=== PATIENT | female | born 1965 | race Caucasian/White ===

== ENCOUNTER 2017-03-10 08:18 | Observation (INO) ==
[2017-03-10] MEDS ORDERED: Ketorolac 30 MG/ML VIAL IVP ONE ×2 (09:21→18:56)
--- NOTE | 2017-03-10 09:21 | General Surg History&Physical ---
<Francisca Ling - Last Filed: 03/10/17 09:23> Date of Encounter: 03/10/17 Time of Encounter: 09:00 Assessment and Plan (1) Recurrent biliary colic Current Visit: Yes Status: Acute The assessment and plan as outlined above was discussed with the patient and/or family members who expressed understanding and agreement. All questions were answered. NPO IV fluids Pre-operative antibiotic- Mefoxin Supportive care and pain control PPI therapy daily IS every 1 hour while awake Risks, benefits, alternatives and expected outcomes reviewed with the patient and she is in agreement to proceed to the operating room with Dr. Villalba for a laparoscopic cholecystectomy with cholangiogram, possible open in the next 24 hours (2) GERD (gastroesophageal reflux disease) Current Visit: Yes Status: Chronic The assessment and plan as outlined above was discussed with the patient and/or family members who expressed understanding and agreement. All questions were answered. EGD complete 01/[address] Ivy PPI therapy daily Qualifiers: Esophagitis presence: with esophagitis Qualified Code(s): K21.0 - Gastro- esophageal reflux disease with esophagitis (3) Anxiety and depression Current Visit: Yes Status: Chronic The assessment and plan as outlined above was discussed with the patient and/or family members who expressed understanding and agreement. All questions were answered. (4) Migraine headache Current Visit: No Status: Chronic The assessment and plan as outlined above was discussed with the patient and/or family members who expressed understanding and agreement. All questions were answered. Toradol prn for migraine headaches Qualifiers: Migraine type: unspecified Status migrainosus presence: without status migrainosus Intractability: not intractable Qualified Code(s): G43.909 - Migraine, unspecified, not intractable, without status migrainosus (5) DVT prophylaxis Current Visit: No Status: Acute The assessment and plan as outlined above was discussed with the patient and/or family members who expressed understanding and agreement. All questions were answered. EPCDs to bilateral lower extremities for DVT prophylaxis Ambulate hallways TID with assistance History of Present Illness Chief complaint: RUQ abdominal pain HPI: Ms. Arciniega is a 51 year old female presented to [place] ED last evening with complaints of recurrent RUQ abdominal pain. She state that the pain woke her up from sleep last night. She describes it as a sharp and stabbing pain in the RUQ which is constant. The pain does radiate into her back. She has experienced pain like this on multiple occasions but it has not been this severe and it typically resolves on its own. She has been unable to get relief from the pain during this episode. She does admit to nausea and vomiting multiple times last night. Reports bilious emesis without hematemesis of coffee ground emesis. She does admit to reflux. She admits to episodes of diaphoresis but did not check her temperature. Denies any changes in bowel habits. Her last bowel movement was yesterday. She denies any difficulty with urination. Denies any shortness of breath or chest pains. She does admit to having a headache and she states that these are chronic for her. The patient has been seen and evaluated by gastroenterology recently and has subsequently been referred to general surgery for cholecystectomy. She was seen and evaluated by Dr. Villalba in his outpatient clinic yesterday and was scheduled for a outpatient cholecystectomy. Past Med Surg Social Fam HX - Past Medical History Source: patient, old records reviewed Medical history: fibromyalgia, GERD, migraine, other Psychiatric history: anxiety, depression - Past Surgical History Surgical History: other (gastric bypass, exploratory laparotomy with DONTA, tonsillectomy) - Social History Smoking Status: Never smoker Smokeless Tobacco Status: No Alcohol use: none Drug use: none Current living situation: Home - Independent Activity Level: Independent ambulation - Family History Mother Living Status: Still Living Hx Family Endocrine Disorder: Yes (Diabetes Mellitus) Father Living Status: Age at : 62 Cause of : throat cancer Hx Family Cancer: Yes (throat cancer) Sister Living Status: Still Living Hx Family Cardiac Disorders: Yes (Multiple DE) Hx Family Endocrine Disorder: Yes (Diabetes Mellitus) Medications and Allergies Acetaminophen [Tylenol] 500 mg PO Q6H PRN 01/12/17 [History] Acetaminophen/Butalbital/Caffe [Fioricet] 1 each PO DAILY PRN 01/12/17 [History] Ranitidine HCl [Zantac] 150 mg PO BID 01/12/17 [History] Tramadol HCl [Ultram] 50 mg PO TID PRN 01/12/17 [History] Zolpidem [Ambien] 10 mg PO HS 01/12/17 [History] lamoTRIgine [Lamictal] 200 mg PO HS 01/12/17 [History] Amitriptyline [Elavil] 50 mg PO DAILY 03/10/17 [History] FLUoxetine HCl [Fluoxetine HCl] 60 mg PO DAILY 03/10/17 [History] Omeprazole [PriLOSEC] 20 mg PO DAILY 03/10/17 [History] SUMAtriptan succinate [Imitrex] 50 mg PO Q2H PRN 03/10/17 [History] 3 Allergy/AdvReac Type Severity Reaction Status Date / Time metoclopramide [From Reglan] Allergy See Verified 03/10/17 09:45 Comments Penicillins Allergy Anaphylaxis Verified 03/10/17 09:45 Sulfa (Sulfonamide Allergy Swelling Verified 03/10/17 09:45 Antibiotics) of Lip/Tongue/Throat Review of Systems All systems PM: reviewed and no additional remarkable complaints except as stated (in the HPI) All systems PM: A 10-system review of systems was performed and is negative for pertinent findings except as documented above in the HPI. General Surgery Exam Initial Vital Signs Temp Pulse Resp BP Pulse Ox 97.7 F 64 16 157/109 96 03/10/17 08:20 03/10/17 08:20 03/10/17 08:20 03/10/17 08:20 03/10/17 08:20 - General physical appearance well developed, well nourished, moderate distress, moderate pain - Eyes PERRL, normal ocular movement - ENT normal mucosa, atraumatic, normocephalic - Neck trachea midline - Respiratory normal respiratory effort, clear to auscultation - Cardiovascular Cardiovascular exam: Present: RRR - Abdomen Abdomen general surgery: Present: bowel sounds present, soft, tender Abdominal Tenderness: Present: RUQ - Neurologic Present: CN 2-12 grossly intact - Psychiatric Psychiatric general surgery: Present: appropriate, oriented to person, oriented to place, oriented to time, speech is normal, memory intact Results - Labs All other labs normal. - Attending Attestation For this encounter, I have reviewed the INTERVENTIONAL PHYSIATRIST or PA documentation, treatment plan, and medical decision making; and I have had face to face time with this patient. <Nura Villalba - Last Filed: 03/10/17 18:32> Date of Encounter: 03/10/17 History of Present Illness HPI: Ms. Arciniega is a 51 year old female Review of Systems All systems PM: A 10-system review of systems was performed and is negative for pertinent findings except as documented above in the HPI. General Surgery Exam Initial Vital Signs Temp Pulse Resp BP Pulse Ox 97.7 F 64 16 157/109 96 03/10/17 08:20 03/10/17 08:20 03/10/17 08:20 03/10/17 08:20 03/10/17 08:20 Results - Labs All other labs normal. - Attending Attestation I have personally performed a face to face evaluation on this patient. I have reviewed and agree with the care plan. History and Exam by me shows: The patient is seen and evaluated with the clinical nurse practitioner. The patient has signs of continued chronic pancreatitis by CAT scan and right upper quadrant pain. Gastroenterology has recommended cholecystectomy and I concur. She continues to be symptomatic with right upper quadrant pain. We will proceed with laparoscopic cholecystectomy later today. Please see documentation from outpatient clinic note from yesterday. Nura Villalba MD FACS
[2017-03-10] MEDS ORDERED: Ondansetron 4 MG/2 ML VIAL IVP ONE (09:22)
[2017-03-10] MEDS ORDERED: 0.9 % Sodium Chloride 1,000 ML IVC SCH (09:45)
[2017-03-10] MEDS ORDERED: Ondansetron 4 MG/2 ML VIAL IVP PRN (09:45)
[2017-03-10] MEDS ORDERED: Naloxone 0.4 MG/ML INJ IVP PRN ×2 (09:45→18:27)
[2017-03-10] MEDS ORDERED: cefOXitin 2,000 MG in Water for inj. (sterile) 10 ML IVP ONE ×3 (09:50→18:27)
[2017-03-10] MEDS ORDERED: Acetaminophen 325 MG TABLET PO PRN ×2 (09:50→18:27)
[2017-03-10] MEDS ORDERED: *HR* OxyCODONE/APAP 5/325 TABLET PO PRN (09:50)
[2017-03-10] MEDS ORDERED: *HR* HYDROmorphone (PF) 1 MG/ML SYRINGE IVP PRN ×2 (09:50→18:27)
[2017-03-10] MEDS ORDERED: Ketorolac 15 MG/ML VIAL IVP PRN ×2 (09:50→14:55)
[2017-03-10] MEDS ORDERED: *HR* LORazepam 2 MG/ML VIAL IVP PRN ×2 (09:53→18:27)
[2017-03-10] MEDS ORDERED: *HR* Midazolam HCl 2 MG/2 ML VIAL ONE (15:28)
[2017-03-10] MEDS ORDERED: Dexamethasone 4 MG/ML VIAL ONE (15:28)
[2017-03-10] MEDS ORDERED: *HR* Rocuronium Bromide 50 MG/5 ML VIAL ONE (15:28)
[2017-03-10] MEDS ORDERED: Lidocaine -MPF 4% 5 ML AMPUL ONE (15:28)
[2017-03-10] MEDS ORDERED: *HR* Succinylcholine 200 MG/10 ML VIAL IVP ONE (15:28)
[2017-03-10] MEDS ORDERED: Neostigmine Methylsulfate 3 MG/3 ML SYRINGE ONE (15:28)
[2017-03-10] MEDS ORDERED: Ondansetron 4 MG/2 ML VIAL ONE (15:28)
[2017-03-10] MEDS ORDERED: *HR* FentaNYL (PF) 100 MCG/2 ML VIAL ONE (15:28)
[2017-03-10] MEDS ORDERED: Lidocaine -MPF 2% 2 ML VIAL ONE (15:28)
--- NOTE | 2017-03-10 15:28 | Anesthesia Evaluation PreOp ---
Date of Encounter: 03/10/17 Time of Encounter: 15:24 - Past History Planned Operation: Lap Radha re: Biliary Colic Cardiac History: Denies any Significant Hx Pulmonary History: Denies Any Significant HX CITY CLERK History: Other (Anxiety/Depression maintained on Prozac, Lamictal Hx of Migraines. Fibromyalgia) Other Medical History: GERD (w/Esophagitis maintained on Zantac, Omeprazole) Anesthesia History: No Prior Anesthetic Complications, Past Anesthesia (Gastric bypass, Expl Lap w/DONTA, T&A) Alcohol Use: none Drug use: none Medications and Allergies Acetaminophen [Tylenol] 500 mg PO Q6H PRN 01/12/17 [History] Acetaminophen/Butalbital/Caffe [Fioricet] 1 each PO DAILY PRN 01/12/17 [History] Ranitidine HCl [Zantac] 150 mg PO BID 01/12/17 [History] Tramadol HCl [Ultram] 50 mg PO TID PRN 01/12/17 [History] Zolpidem [Ambien] 10 mg PO HS 01/12/17 [History] lamoTRIgine [Lamictal] 200 mg PO HS 01/12/17 [History] Amitriptyline [Elavil] 50 mg PO DAILY 03/10/17 [History] FLUoxetine HCl [Fluoxetine HCl] 60 mg PO DAILY 03/10/17 [History] Omeprazole [PriLOSEC] 20 mg PO DAILY 03/10/17 [History] SUMAtriptan succinate [Imitrex] 50 mg PO Q2H PRN 03/10/17 [History] 3 Allergy/AdvReac Type Severity Reaction Status Date / Time metoclopramide [From Reglan] Allergy See Verified 03/10/17 09:45 Comments Penicillins Allergy Anaphylaxis Verified 03/10/17 09:45 Sulfa (Sulfonamide Allergy Swelling Verified 03/10/17 09:45 Antibiotics) of Lip/Tongue/Throat - Meds/Allergy Pre-op Review Medications Reviewed: Yes Allergies Reviewed: Yes Beta Blockers on Current Med List: No Anesthesia Results - Labs Laboratory Tests 03/09/17 03/09/17 23:40 23:40 WBC 7.4 Hgb 14.7 Hct 43.3 Plt Count 271 Sodium 140 Potassium 4.6 H Chloride 106 Carbon Dioxide 20 BUN 14 Creatinine 0.88 Est GFR (Non-Af Amer) > 60 Glucose 160 H Alkaline Phosphatase 182 H - Imaging EKG: image reviewed (101 STach) Anesthesia Exam Vital Signs Temp Pulse Resp BP Pulse Ox 03/10/17 11:53 96 03/10/17 10:30 97.7 F 58 16 104/63 96 03/10/17 09:33 61 18 114/81 96 03/10/17 09:12 66 93/79 99 03/10/17 08:31 63 134/94 97 03/10/17 08:20 97.7 F 64 16 157/109 96 Intake and Output 03/09/17 03/10/17 03/10/17 23:59 07:59 15:59 Other: Weight 83.149 kg Patient Weight 03/10/17 23:59 Weight 83.149 kg Height: 5'2" Weight: 183# BMI = 34 NPO (# of Hours): Mnoc - HEENT Pupil (Motor): Pupils equal, EOMI Mallampati: II Teeth: Normal Oral Opening: Greater than 3 - CITY CLERK LOC: Oriented CITY CLERK Motor: Normal RUE, Normal LUE, Normal RLE, Normal LLE, Normal Face CITY CLERK Sensory: Normal: RUE, LUE, RLE, LLE, Face - Cardiac Rhythm: Regular Murmur: None - Pulmonary Breath Sounds: bilateral Clear Respiratory Effort: Symmetrical Anesthesia Assess/Plan ASA Score: 3 Modified [place] Scale for Level of Consciousness: Cooperative, oriented, and tranquil Anesthetic Plan: General Monitoring Plan: Standard Monitors Recovery Plan: PACU Anes Supervising Prov Stmt: PT seen/evaluated, R&B discussed, questions answered and consent obtained - MD Sandeep
[2017-03-10] MEDS ORDERED: *HR* Propofol 200 MG/20 ML VIAL IVP ONE (15:29)
[2017-03-10] MEDS ORDERED: CefOXitin 2,000 MG VIAL ONE (16:18)
[2017-03-10] MEDS ORDERED: Acetaminophen IV 1,000 MG/100 ML INFUS..BTL ONE (16:29)
[2017-03-10] MEDS ORDERED: Famotidine 20 MG/2 ML VIAL ONE (16:30)
[2017-03-10] MEDS ORDERED: CefOXitin 1,000 MG VIAL ONE (16:41)
[2017-03-10] MEDS ORDERED: EPHEDrine 50 MG/ML VIAL ONE (17:49)
[2017-03-10] MEDS ORDERED: *HR* Morphine 10 MG/ML VIAL ONE (18:00)
--- NOTE | 2017-03-10 18:24 | Operative Note ---
Date of procedure: 03/10/17 Pre-op diagnosis: Chronic pancreatitis and biliary dyskinesia Post-op diagnosis: same Procedure: Laparoscopic Cholecystectomy Anesthesia: UBALDO Surgeon: Nura Villalba Estimated blood loss (cc): 20 Specimen: Gallbladder and contents Condition: stable Disposition: PACU Procedure in Detail: After informed consent the patient is taken to the major operative suite and placed in the supine position and given adequate general endotracheal anesthesia. The abdomen is prepped and draped in sterile fashion utilizing ChloraPrep standard draping techniques. Timeout was taken. The patient is identified. I made a vertical midline incision below the umbilicus. I dissected down to the midline fascia. 2 traction stitches of 2-0 Vicryl were placed. The Howard trocar was placed visually into the abdomen. There were midline adhesions of the small bowel to the anterior abdominal wall area I was able to go around these with no trauma. I placed an 11 trocar in the subxiphoid area and 25 mm trochars in subcostal area. The gallbladder was grasped and elevated. A variety of blunt and sharp dissection techniques used isolate a very small sclerotic cystic duct and the cystic artery. 2 surgical clips were placed proximally one distally on the cystic duct and it was divided. 2 surgical clips were placed proximally one distally on the cystic artery and it was divided. I placed 2 surgical clips and one additional branch of the cystic artery. The gallbladder was removed from the gallbladder fossa using electrocautery and subsequently removed the #11 port site. I replaced a # 11 port and irrigated with copious amounts of antibiotic containing solution. There is no evidence of bleeding or bile leak. The trochars were removed and the fascia was closed with 0 Vicryl and the skin with 2-0 and 4-0 Vicryl. She tolerated the procedure well.
[2017-03-10] MEDS ORDERED: Ketorolac 30 MG/ML VIAL ONE (18:50)
[2017-03-10] MEDS ORDERED: *HR* Promethazine 25 MG/ML VIAL ONE (18:50)
[2017-03-10] MEDS: *HR* Promethazine 25 MG/ML VIAL IVP SCH ×2 (18:53→19:07)
--- NOTE | 2017-03-10 19:12 | Anesthesia Evaluation Post Op ---
Date of Encounter: 03/10/17 Time of Encounter: 19:10 - Vital Signs Vital Signs: Vital Signs/O2 Sat/Glucose, Most Current Temp Pulse Resp BP Pulse Ox 03/10/17 19:02 98.1 F 63 16 117/70 94 03/10/17 18:52 74 16 119/69 94 03/10/17 18:42 84 16 117/75 96 03/10/17 18:32 97.1 F L 98 16 139/83 100 03/10/17 16:41 62 15 110/76 97 03/10/17 15:42 98.0 F 59 16 123/78 98 - Lungs Lungs: Clear Ascult./Percussion - Airway Airway: Non-obstructed - Cardiovascular Regular Rate - Mental Status Mental Status: Alert & Oriented, Answers Appropriately - Pain Pain Scale: 2 Pain Scale used: Numeric (1 - 10) - Nausea Vomiting Nausea Vomiting: Responds to treatment with IV Meds - Hydration Hydration: Ice chips, Has not voided - Discharge PostOp Status: Transfer Patient to floor Anes Supervising Prov Stmt: Pt seen/evaluated, VSS and pt has met criteria for discharge to floor. - MD Sandeep
[2017-03-10] MEDS: *HR* OxyCODONE/APAP 5/325 TABLET PO PRN (19:39)
[2017-03-10] MEDS: Famotidine 20 MG TABLET PO SCH (19:39)
[2017-03-10] MEDS ORDERED: Famotidine 20 MG TABLET PO SCH (21:00)
[2017-03-11] MEDS: 0.9 % Sodium Chloride 1,000 ML IVC SCH ×2 (01:14→08:36)
[2017-03-11] MEDS: *HR* OxyCODONE/APAP 5/325 TABLET PO PRN ×2 (01:28→05:51)
[2017-03-11] MEDS: Ondansetron 4 MG/2 ML VIAL IVP PRN ×3 (01:29→10:27)
[2017-03-11] MEDS: Ketorolac 15 MG/ML VIAL IVP PRN ×2 (03:01→08:43)
[2017-03-11] MEDS ORDERED: SUMAtriptan succinate 50 MG TABLET PO PRN (07:22)
[2017-03-11] MEDS: Famotidine 20 MG TABLET PO SCH (08:34)
[2017-03-11] MEDS ORDERED: FLUoxetine 20 MG CAPSULE PO SCH ×2 (09:00)
[2017-03-11 11:59] VITALS: BP 122/81
--- NOTE | 2017-03-11 14:13 | Discharge Summary ---
<Francisca Ling - Last Filed: 03/11/17 14:10> Date of Encounter: 03/11/17 Time of Encounter: 14:00 - Discharge Diagnosis (1) Recurrent biliary colic Priority: Primary Status: Resolved (2) GERD (gastroesophageal reflux disease) Priority: Secondary Status: Chronic Qualifiers: Esophagitis presence: with esophagitis Qualified Code(s): K21.0 - Gastro- esophageal reflux disease with esophagitis (3) Anxiety and depression Priority: Secondary Status: Chronic (4) Migraine headache Priority: Secondary Status: Chronic Qualifiers: Migraine type: unspecified Status migrainosus presence: without status migrainosus Intractability: not intractable Qualified Code(s): G43.909 - Migraine, unspecified, not intractable, without status migrainosus - Discharge Medications Prescriptions: OxyCODONE/APAP 5/325 [Percocet 5/325 MG] 1 each PO Q4HR PRN #30 tablet PRN Reason: Moderate Pain Ibuprofen [Motrin] 800 mg PO Q8HR #40 tablet Docusate [Colace] 100 mg PO BID #30 capsule Home Medications: Acetaminophen [Tylenol] 500 mg PO Q6H PRN 01/12/17 [History] Acetaminophen/Butalbital/Caffe [Fioricet] 1 each PO DAILY PRN 01/12/17 [History] Ranitidine HCl [Zantac] 150 mg PO BID 01/12/17 [History] Tramadol HCl [Ultram] 50 mg PO TID PRN 01/12/17 [History] Zolpidem [Ambien] 10 mg PO HS 01/12/17 [History] lamoTRIgine [Lamictal] 200 mg PO HS 01/12/17 [History] Amitriptyline [Elavil] 50 mg PO DAILY 03/10/17 [History] FLUoxetine HCl [Fluoxetine HCl] 60 mg PO DAILY 03/10/17 [History] Omeprazole [PriLOSEC] 20 mg PO DAILY 03/10/17 [History] SUMAtriptan succinate [Imitrex] 50 mg PO Q2H PRN 03/10/17 [History] Docusate [Colace] 100 mg PO BID #30 capsule 03/11/17 [Rx] Ibuprofen [Motrin] 800 mg PO Q8HR #40 tablet 03/11/17 [Rx] OxyCODONE/APAP 5/325 [Percocet 5/325 MG] 1 each PO Q4HR PRN #30 tablet 03/11/17 [Rx] Allergies/Adverse Reactions: 3 Allergy/AdvReac Type Severity Reaction Status Date / Time metoclopramide [From Reglan] Allergy See Verified 03/10/17 09:45 Comments Penicillins Allergy Anaphylaxis Verified 03/10/17 09:45 Sulfa (Sulfonamide Allergy Swelling Verified 03/10/17 09:45 Antibiotics) of Lip/Tongue/Throat General Surgery Exam Initial Vital Signs Temp Pulse Resp BP Pulse Ox 97.7 F 64 16 157/109 96 03/10/17 08:20 03/10/17 08:20 03/10/17 08:20 03/10/17 08:20 03/10/17 08:20 - General physical appearance well developed, well nourished, no distress - Eyes normal ocular movement - ENT normal mucosa, atraumatic, normocephalic - Neck trachea midline - Respiratory normal respiratory effort, clear to auscultation - Cardiovascular Cardiovascular exam: Present: RRR - Abdomen Abdomen general surgery: Present: bowel sounds present, soft, tender (Expected postoperative tenderness) - Incision Incision: Present: clean and dry, intact - Integumentary Integumentary general surgery: Present: warm and dry - Neurologic Present: CN 2-12 grossly intact - Psychiatric Psychiatric general surgery: Present: A&Ox3 Date of admission: 03/10/17 09:50 Primary care physician: Delpihne Silva MD Discharging clinician: Nura Villalba ([facility]) Anticipated date of discharge: 03/11/17 - Patient Status Disposition: Home, Self-Care Condition: Good Functional capacity at discharge: independent ambulation Overall status at discharge: patient is progressing back to baseline - Discharge Instructions Instructions: Ibuprofen (By mouth), Oxycodone/Acetaminophen (By mouth), Laxative, Stool Softeners (By mouth) Follow Up With: Delphine Silva MD [Primary Care Provider] - Yolande Lund CNP [Advanced Practice Nurse] - 03/19/17 8:20 am (surgery follow -up) Forms: ED Satisfaction Letter, Work/School Release Additional Instructions: #1 may shower today, no tub bath for 2 weeks #2 wash incisions with soap and water and pat dry daily #3 no lifting, pushing, pulling more than 15 pounds for the next 2 weeks #4 no driving until off narcotics for 24 hours and able to safely react in the car #5 may climb stairs - Diet and Activity Activity: other (See additional instructions above) Diet: advance to your usual diet - Hospital Course Hospital course: Ms. Arciniega is a 51 year old female who presented to the hospital with recurrent biliary colic. She was admitted to the hospital and started on supportive measures including IV fluids and pain control. She was taken to the operating room for laparoscopic cholecystectomy with Dr. Villalba. On postoperative day #1, she states that her preoperative pain has resolved. Her vital signs are stable she is afebrile. Her postoperative pain is well-controlled. She is voiding and ambulating without difficulty. We will begin discharge. Home and plan for outpatient follow-up in the next 7-10 days. - Time Spent with Patient Total time spent providing and/or coordinating discharge services: Less than 30 minutes - Attending Attestation For this encounter, I have reviewed the ROAD FREIGHT CONDUCTOR or PA documentation, treatment plan, and medical decision making; and I have had face to face time with this patient. <Nura Villalba - Last Filed: 03/12/17 13:48> Date of Encounter: 03/11/17 General Surgery Exam Initial Vital Signs Temp Pulse Resp BP Pulse Ox 97.7 F 64 16 157/109 96 03/10/17 08:20 03/10/17 08:20 03/10/17 08:20 03/10/17 08:20 03/10/17 08:20 Date of admission: 03/10/17 09:50 Primary care physician: Delphine Silva MD - Hospital Course Hospital course: Ms. Arciniega is a 51 year old female - Time Spent with Patient Total time spent providing and/or coordinating discharge services: - Attending Attestation I have personally performed a face to face evaluation on this patient. I have reviewed and agree with the care plan. History and Exam by me shows: The patient was seen and evaluated for morning neves. She is had cholecystectomy and is ready for discharge. I will follow the office. Nura Villalba MD FACS
== END 2017-03-11 14:42 | disposition home or self-care (01) ==
LOC: 3BNU 08:18 → EMEROO 08:18 → 3BNU 10:20
PROVIDERS: ADMIT Surgery; ATTEND Surgery

== ENCOUNTER 2017-03-21 12:54 | Inpatient (IN) ==
[2017-03-21] MEDS ORDERED: *HR* HYDROmorphone (PF) 1 MG/ML SYRINGE IVP ONE ×2 (13:43→14:20)
[2017-03-21] MEDS ORDERED: Ondansetron 4 MG/2 ML VIAL IVP ONE ×2 (13:43→18:49)
[2017-03-21] MEDS ORDERED: 0.9 % Sodium Chloride 1,000 ML IVC ONE (13:44)
[2017-03-21 13:53] LABS: Basophils % 0.8 %; Eosinophils # 0.3 K/mcL (0.0-0.6); Eosinophils % 4.9 %; Hemoglobin 14.9 g/dL (11.5-15.4); Immature Granulocytes % 0.2 % (0-4); Lymphocytes # 1.2 K/mcL (0.6-4.6); Lymphocytes % 24.2 %; Mean Corpuscular HGB Conc 32.4 g/dL (31.6-35.5); Mean Corpuscular Hemoglobin 28.9 pg (28.0-33.3); Mean Corpuscular Volume 89.3 fL (83.0-100.0); Mean Platelet Volume 10.6 fL (9.4-12.4); Monocytes # 0.4 K/mcL (0.0-1.3); Monocytes % 7.4 %; Neutrophils # 3.2 K/mcL (1.6-8.9); Platelet Count 295 K/mcL (140-400); Red Blood Count 5.15 M/mcL (3.82-4.97); Red Cell Distribution Width 13.4 % (11.5-14.5); Segmented Neutrophils % 62.5 %
[2017-03-21 13:55] LABS: Bilirubin,Urine Negative (Negative); Blood,Urine Negative (Negative); Clarity,Urine Clear (Clear); Color,Urine Yellow (Yellow); Glucose,Urine (UA) Normal (Normal); Ketones,Urine Negative (Negative); Leukocyte Esterase,Urine Small (Negative); Nitrite,Urine Negative (Negative); PH,Urine 6.5 pH Units (5.0-8.0); Protein,Urine Negative (Neg-Trace); Specific Gravity,Urine 1.024 (1.010-1.025); Urobilinogen,Urine Normal (Normal)
[2017-03-21 13:56] LABS: Bacteria,Urine None Seen per hpf (None-Few); Hyaline Casts,Urine None Seen per lpf (None-Few); RBC,Urine 0-3 per hpf (0-3); Squamous Epithelial Cell,Urine Many per lpf (None-Few)
[2017-03-21 14:08] LABS: Alanine Aminotransferase 16 Units/L (0-55); Albumin 3.8 g/dL (3.5-5.0); Alkaline Phosphatase 185 Units/L (38-126); Amylase 65 Units/L (25-125); Aspartate Amino Transferase 20 Units/L (5-34); BUN/Creatinine Ratio 12 (6-26); Bilirubin,Direct 0.1 mg/dL (0.0-0.5); Bilirubin,Indirect 0.1 mg/dL (0.0-1.2); Blood Urea Nitrogen 11 mg/dL (7-20); Calcium 9.4 mg/dL (8.6-10.8); Carbon Dioxide 24 mEq/L (19-29); Chloride 103 mEq/L (98-109); Globulin 3.9 g/dL (2.4-3.5); Glucose 88 mg/dL (70-99); Lipase 19 Units/L (8-78); Osmolality,Calculated 285 (280-300); Potassium 4.1 mEq/L (3.5-4.5); Sodium 138 mEq/L (136-145); Total Protein 7.7 g/dL (6.0-8.3); eGFR For African Americans > 60 (> 60); eGFR For Non-African Americans > 60 (> 60)
[2017-03-21 14:09] LABS: Bilirubin,Total < 0.2 mg/dL (0.2-1.2)
--- NOTE | 2017-03-21 14:33 | Emergency Department Note ---
Disposition Clinical Impression: Duodenitis, Duodenal ulcer, S/P cholecystectomy Abdominal pain Qualifiers: Abdominal location: right upper quadrant Qualified Code(s): R10.11 - Right upper quadrant pain Nausea and vomiting Qualifiers: Vomiting type: unspecified Vomiting Intractability: non-intractable Qualified Code(s): R11.2 - Nausea with vomiting, unspecified Disposition: Admitted As Inpatient Condition: Fair Time of Disposition: 16:12 Abdominal Pain HPI - General Chief Complaint: ED Abdominal Pain Stated Complaint: LRQ Pain Time Seen by Provider: 03/21/17 13:29 Source: patient Mode of arrival: ambulatory Limitations: no limitations Nursing Notes Reviewed: Yes Vital Signs Reviewed: Yes - History of Present Illness HPI Narrative: 51-year-old female. ED with right upper quadrant pain. Patient is status post cholecystectomy [address] Villalba. She has had this pain coming going since the surgery. She has been taking her normal medical decisions which have worked for part of the time for her pain but is not taking care of it completely. Patient states she is able to eat except when the pain occurs. Patient did state that today she was given a have a steak. She states that she is nauseous and has been vomiting she says is nonbilious and nonbloody. There has been no diarrhea as as been normal bowel movements. She has no chest pain or shortness of breath. Patient was seen at an outside hospital [facility] department on for the similar pain where they did a CT of her abdomen which came back normal and last [place] and back normal and told her follow-up with the surgeon on Wednesday. She did see the nurse practitioner for the surgeon but the patient was not having pain at that time they suggest a follow-up with the surgeon's office if she has any issues. Patient having no headache, blurry vision, shortness of breath or chest pain, fevers, pain with urination pain or tingling going down the arms or legs or any weakness. Pain Scale: 10 - Related Data Home Medications Medication Instructions Recorded Confirmed Acetaminophen [Tylenol] 500 mg PO Q6H PRN 01/12/17 03/21/17 Acetaminophen/Butalbital/Caffe 1 tab PO DAILY PRN 01/12/17 03/21/17 [Fioricet] Ranitidine HCl [Zantac] 150 mg PO BID 01/12/17 03/21/17 Tramadol HCl [Ultram] 50 mg PO TID PRN 01/12/17 03/21/17 Zolpidem [Ambien] 10 mg PO HS 01/12/17 03/21/17 lamoTRIgine [Lamictal] 200 mg PO HS 01/12/17 03/21/17 Amitriptyline [Elavil] 50 mg PO DAILY 03/10/17 03/21/17 FLUoxetine HCl [Fluoxetine HCl] 60 mg PO DAILY 03/10/17 03/21/17 Omeprazole [PriLOSEC] 20 mg PO DAILY 03/10/17 03/21/17 SUMAtriptan succinate [Imitrex] 50 mg PO Q2H PRN 03/10/17 03/21/17 OxyCODONE/APAP 5/325 [Percocet 1 tab PO Q4HR PRN 03/21/17 03/21/17 5/325 MG] Previous Rx's Medication Instructions Recorded Docusate [Colace] 100 mg PO BID #30 capsule 03/11/17 Allergies Allergy/AdvReac Type Severity Reaction Status Date / Time metoclopramide [From Reglan] Allergy See Verified 03/19/17 02:40 Comments Penicillins Allergy Anaphylaxis Verified 03/19/17 02:40 Sulfa (Sulfonamide Allergy Swelling Verified 03/19/17 02:40 Antibiotics) of Lip/Tongue/Throat Review of Systems: 10 point review of systems done and negative unless otherwise stated in history of present illness. All systems ED: reviewed and negative except as stated. 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 Psychiatric history: Reports: anxiety, depression - Social History Smoking status: Former smoker Alcohol use: Reports: none Drug use: Reports: none Physical Exam - General Limitations: no limitations General appearance: alert, in no apparent distress - Head Head exam: atraumatic, normocephalic, normal inspection - Eye Eye exam: Present: normal appearance, PERRL, EOMI - ENT ENT exam: normal exam, normal oropharynx, mucous membranes moist - Neck Neck exam: Present: normal inspection - Chest Chest inspection: Present: normal inspection, symmetric chest wall rise - Respiratory Respiratory exam: Present: normal lung sounds bilaterally - Cardiovascular Cardiovascular exam: Present: regular rate, normal rhythm, normal heart sounds - Abdominal Exam Abdominal exam: Present: soft, tenderness, normal bowel sounds, incision (From recent cholecystectomy), Hagan's sign. Absent: distention, guarding, rebound, rigidity, organomegaly, Rovsing's sign, tenderness at McBurney's Point, mass, pulsatile mass Abdominal tenderness: Present: RUQ, moderate - Extremities Exam Extremities exam: Present: normal inspection, full ROM, normal capillary refill. Absent: tenderness, pedal edema - Back Exam Back exam: Present: normal inspection, full ROM. Absent: tenderness, CVA tenderness (R), CVA tenderness (L) - Neurological Exam Neurological exam: Present: alert, oriented X3 - Skin Skin exam: Present: warm, dry, intact, normal color Course Course Narrative: 51-year-old female presents to the ED complaining of right upper quadrant pain status post cholecystectomy 1 week ago. She is still having excruciating pain with vomiting. We will give her IV fluids, Dilaudid and Zofran. We will also get basic labs including CBC, CMP, amylase, lipase and urinalysis. Due to her pain will also get a CT of her abdomen to see if there is any acute pathology. Patient is okay with this plan - Reevaluation(s) Reevaluation #1: Patient is in her room still complaining of abdominal pain she says it still hurts the right upper quadrant this time I will order a second milligram of Dilaudid to help with her pain control. Time: 14:36 - Consultations Consultation #1: Spoke with Dr. Nogueira who is on-call for Dr. Villalba's office he looks the CT and said this is nonsurgical issue at this time and they will consult and first admitted to the medicine service. Time: 15:53 Consultation #2: Spoke with the hospitalist, Dr. Flowers who agreed to accept the patient this time. Time: 16:11 Vital Signs Temperature 98.2 F 03/21/17 13:20 Pulse Rate 85 03/21/17 13:20 Respiratory Rate 20 03/21/17 13:20 Blood Pressure 132/89 03/21/17 13:20 O2 Sat by Pulse Oximetry 95 03/21/17 13:20 Temperature 97.9 F 11/14/17 15:43 Pulse Rate 74 03/23/17 15:43 Respiratory Rate 16 03/23/17 15:43 Blood Pressure 101/68 03/23/17 15:43 O2 Sat by Pulse Oximetry 96 03/23/17 15:43 Oxygen Delivery Oxygen Delivery Room Air Abdominal Pain - MDM Narrative Medical decision making narrative: 51-year-old female presents to the ED complaining of right upper quadrant pain she is status post cholecystectomy [address] Villalba. She has been having right upper quadrant pain since the surgery but when taking her medications which has been helping with it. Said today the pain increased where she was unable to handle and S are brought her in. Patient was also seen at [facility] department where they did a CT and there was no abnormal findings. She did follow-up with Dr. Villalba's office on Wednesday but she is not having the pain and they said to follow up if she has any issues. Come here patient was in a lots of pain in her abdomen all located in the right upper quadrant. We gave her 2 mg of Dilaudid which did not help with the pain at all so we gave her 50 mg of fentanyl. This seemed to work better for her pain. We also got a CT which showed duodenitis and possible duodenal ulcer with possible contained perforation. At this time I spoke with the surgeon who is on-call for Dr. Villalba's group, Dr. Nogueira who looked at the CT and said this was not likely due to the surgery and can be treated on the medicine service with their consultation. At this time we started broad-spectrum antibiotics including Flagyl and Cipro. I also gave her a bolus of Protonix and followed it with a drip. Patient was given another 50 mg of fentanyl as she is still having the pain. Patient was admitted to the hospitalist service after I talked to the hospitalist, Dr. Flowers who agreed to set the patient. Patient is admitted to the hospitalist service in stable condition. Abdomen/Pelvis CT 03/21/17 13:54 IMPRESSION: Wall thickening and inflammatory stranding adjacent to the distal stomach and descending duodenum suspicious for gastro duodenitis. There has been interval development of a 1.2 x 0.9 cm focal fluid collection immediately adjacent to the medial descending duodenum, likely focal ulceration or less likely contained perforation. D/ / Elaine Pickens Cha, MD / Elaine Pickens Cha, MD Interpreting Provider: Elaine Pickens Cha, MD - Differential Diagnosis Differential Diagnosis: Likely: abdominal pain non-specific, constipation, colonic obstruction, gastroenteritis, pancreatitis, small bowel obstruction - Medical Records Medical records reviewed: Yes I reviewed the patient's medical records. - Lab Data Lab results reviewed: Yes I reviewed the patient's lab results. Result diagrams: 03/23/17 03:08 03/23/17 03:08 Lab Results 03/21/17 03/21/17 03/21/17 Range/Units 13:37 13:37 13:37 WBC 5.1 (4.3-11.1) K/mcL RBC 5.15 H (3.82-4.97) M/mcL Hgb 14.9 (11.5-15.4) g/dL Hct 46.0 H (35.3-44.9) % MCV 89.3 (83.0-100.0) fL MCH 28.9 (28.0-33.3) pg MCHC 32.4 (31.6-35.5) g/dL RDW 13.4 (11.5-14.5) % Plt Count 295 (140-400) K/mcL MPV 10.6 (9.4-12.4) fL Immature Gran % 0.2 (0-4) % Seg Neutrophils % 62.5 % Lymphocytes % 24.2 % Monocytes % 7.4 % Eosinophils % 4.9 % Basophils % 0.8 % Neutrophils # 3.2 (1.6-8.9) K/mcL Lymphocytes # 1.2 (0.6-4.6) K/mcL Monocytes # 0.4 (0.0-1.3) K/mcL Eosinophils # 0.3 (0.0-0.6) K/mcL Basophils # 0.0 (0.0-0.2) K/mcL Sodium 138 (136-145) mEq/L Potassium 4.1 (3.5-4.5) mEq/L Chloride 103 (98-109) mEq/L Carbon Dioxide 24 (19-29) mEq/L BUN 11 (7-20) mg/dL Creatinine 0.89 (0.57-1.11) mg/dL Est GFR ( Amer) > 60 (> 60) Est GFR (Non-Af Amer) > 60 (> 60) BUN/Creatinine Ratio 12 (6-26) Glucose 88 (70-99) mg/dL Calculated Osmolality 285 (280-300) Calcium 9.4 (8.6-10.8) mg/dL Total Bilirubin < 0.2 L (0.2-1.2) mg/dL Direct Bilirubin 0.1 (0.0-0.5) mg/dL Indirect Bilirubin 0.1 (0.0-1.2) mg/dL AST 20 (5-34) Units/L ALT 16 (0-55) Units/L Alkaline Phosphatase 185 H (38-126) Units/L Serum Total Protein 7.7 (6.0-8.3) g/dL Albumin 3.8 (3.5-5.0) g/dL Globulin 3.9 H (2.4-3.5) g/dL Albumin/Globulin Ratio 1.0 L (1.1-2.2) Amylase 65 (25-125) Units/L Lipase 19 (8-78) Units/L Urine Color Yellow (Yellow) Urine Clarity Clear (Clear) Urine pH 6.5 (5.0-8.0) pH Units Ur Specific [place] 1.024 (1.010-1.025) Urine Protein Negative (Neg-Trace) mg/dL Urine Glucose (UA) Normal (Normal) mg/dL Urine Ketones Negative (Negative) mg/dL Urine Blood Negative (Negative) Urine Nitrite Negative (Negative) Urine Bilirubin Negative (Negative) Urine Urobilinogen Normal (Normal) mg/dL Ur Leukocyte Esterase Small H (Negative) Urine Microscopic RBC 0-3 (0-3) per hpf Urine Microscopic WBC 5-15 H (0-3) per hpf Ur Squamous Epith Cells Many H (None-Few) per lpf Urine Bacteria None Seen (None-Few) per hpf Hyaline Casts None Seen (None-Few) per lpf Ur Culture Indicated? YES A (NO) - Radiology Data Radiology results reviewed: Yes I reviewed the patient's radiology results. Attestation Statement - Attestation Attestation: I examined this patient and my medical decision-making was reviewed with the Resident Physician, Dr. Rivera. I agree with the documented findings, disposition and treatment plan as described except to the extent set forth below. Pt is a 51 yo wf, brought to the ED with grad worsening RUQ/epigastric pain with N/V, and is 7 d s/p lap denys by Dr. Villalba. Pt states that her pain has grad worsened since leaving the hospital, and is worsened with eating. Pt with no bowel changes, no constipation. Pt denies any F/C, no urinary sxs or flank pain. Pt appears uncomfortable, and writhing in pain on arrival. VSS. I agree with the PE findings as documented. On my exam, pt with gen abd TTP, but most tender in RUQ with palpation. Abd soft, and no peritoneal signs on exam. Lap denys incisions, C/D/I, no surrounding erythema/drainage. Pt with stable VS,but requiring repeated doses of IV pain meds to control pain. Labs wnl, UA wnl. CT abd/pelvis was performed at outside [facility] facility 3 d ago , wnl. Repeated imaging, which shows duodenitis, with localized fluid collection , possible perforation. Pt made NPO, started on protonix IV and IV antibx. Pt remains hemodynamically stable. D/W Dr. Nogueira (on-call), who reviewed the images, and does not feel this requires surgical intervention at this time. Recommended admission to medical service and will follow pt. D/W hospitalist, who accepted pt for admission.
[2017-03-21] MEDS ORDERED: *HR* FentaNYL (PF) 100 MCG/2 ML VIAL IVP ONE ×2 (15:32→15:58)
[2017-03-21] MEDS ORDERED: MetroNIDAZOLE 500 MG/100 ML 500 MG/100 ML BAG IVPB ONE (15:47)
[2017-03-21] MEDS ORDERED: Pantoprazole 80 MG in Water for inj. (sterile) 10 ML IVP ONE ×2 (15:51→18:45)
[2017-03-21] MEDS ORDERED: Pantoprazole 80 MG in 0.9 % Sodium Chloride 250 ML IVC SCH (16:00)
[2017-03-21] MEDS ORDERED: *HR* Morphine 2 MG/ML SYRINGE ONE ×2 (18:38→19:47)
[2017-03-21] MEDS: *HR* Morphine 2 MG/ML SYRINGE IVP ONE ×2 (18:41→18:44)
[2017-03-21] MEDS ORDERED: *HR* Morphine 2 MG/ML SYRINGE IVP ONE (19:42)
[2017-03-21] MEDS ORDERED: Naloxone 0.4 MG/ML INJ IVP PRN (20:16)
[2017-03-21] MEDS ORDERED: *HR* HYDROmorphone (PF) 1 MG/ML SYRINGE IVP PRN (20:16)
--- NOTE | 2017-03-21 20:32 | Internal Med History&Physical ---
Date of Encounter: 03/21/17 Time of Encounter: 20:24 Assessment and Plan (1) Abdominal pain Current visit: Yes Status: Acute - Possible etiologies include biliary leak vs duodenitis vs duodenal ulcer. - CT abdomen in ED showed evidence of gastroduodenitis with fluid collection possibly indicitive of duodenal ulcer - Pain has been difficult to control thus far. She has received 4 mg morphine, dilaudid and fentanyl given in ED - General surgery consulted in ED and on floor, they do not believe this to be a surgical emergency. Will see pt - Pain control, IV protonix, and cipro/flagyl Qualifiers: Abdominal location: right upper quadrant Qualified Code(s): R10.11 - Right upper quadrant pain (2) Duodenitis Current visit: Yes Status: Acute Plan as above for abdominal pain - As demonstrated on abdominal CT (3) Nausea and vomiting Current visit: Yes Status: Acute - Pt complains of intermittent nausea and vomiting since onset - Likely secondary to gastro duodenititis vs pain and anxiety - Phenegran ordered PRN Qualifiers: Vomiting type: unspecified Vomiting Intractability: non-intractable Qualified Code(s): R11.2 - Nausea with vomiting, unspecified (4) Distressed appearance Current visit: Yes Status: Acute - Secondary to pain vs possible anxiety - Will attempt to control pain, treat underlying condition - Ativan PRN (5) DVT prophylaxis Current visit: Yes Status: Acute - Will hold anticoagulation in case of surgery and possible ulcer - SCDs Internal Medicine - H&P: HPI Chief complaint: abdominal pain Admitted From: Emergency Dept Plans for Post Hospital Care: Home History of present illness: Ms. Arciniega is a 51 year old female who is s/p cholecystectomy 11 days ago who presents to ED with a complaint of abdominal and chest pain. The pain has been intermittent since the surgery however today it is constant and severe. She went to her follow up appointment on 03/19 however she was not in pain at that time. Her pain is sharp in nature, now constant but waxes and wanes, and is located in the right lower chest vs right upper quadrant. Pain radiates to her back. She admits to nausea, vomiting intermittently throughout the week. Denies hematemasis. Last bowel movement was yesterday and she states it was normal for her. Admits to fevers and subjective chills. In the ED, vitals were stable. Labs significant for alk phos mildly elevated. No white count. ABdominal CT showed evidence of gastro duodenitis with small collection of free fluid indicative of possible duodenal ulcer. Past Med Surg Social Fam HX - Past Medical History Medical history: fibromyalgia, GERD, migraine Psychiatric history: anxiety, depression - Past Surgical History Surgical History: cholecystectomy, other - Social History Smoking Status: Former smoker Smokeless Tobacco Status: No Alcohol use: none Drug use: none - Family History Mother Living Status: Still Living Hx Family Endocrine Disorder: Yes (Diabetes Mellitus) Father Living Status: Hx Family Cancer: Yes (throat cancer) Sister Living Status: Still Living Hx Family Cardiac Disorders: Yes (Multiple OK) Hx Family Endocrine Disorder: Yes (Diabetes Mellitus) Internal Medicine - H&P: Meds Acetaminophen [Tylenol] 500 mg PO Q6H PRN 01/12/17 [History] Acetaminophen/Butalbital/Caffe [Fioricet] 1 tab PO DAILY PRN 01/12/17 [History] Ranitidine HCl [Zantac] 150 mg PO BID 01/12/17 [History] Tramadol HCl [Ultram] 50 mg PO TID PRN 01/12/17 [History] Zolpidem [Ambien] 10 mg PO HS 01/12/17 [History] lamoTRIgine [Lamictal] 200 mg PO HS 01/12/17 [History] Amitriptyline [Elavil] 50 mg PO DAILY 03/10/17 [History] FLUoxetine HCl [Fluoxetine HCl] 60 mg PO DAILY 03/10/17 [History] Omeprazole [PriLOSEC] 20 mg PO DAILY 03/10/17 [History] SUMAtriptan succinate [Imitrex] 50 mg PO Q2H PRN 03/10/17 [History] Docusate [Colace] 100 mg PO BID #30 capsule 03/11/17 [Rx] OxyCODONE/APAP 5/325 [Percocet 5/325 MG] 1 tab PO Q4HR PRN 03/21/17 [History] 3 Allergy/AdvReac Type Severity Reaction Status Date / Time metoclopramide [From Reglan] Allergy See Verified 03/19/17 02:40 Comments Penicillins Allergy Anaphylaxis Verified 03/19/17 02:40 Sulfa (Sulfonamide Allergy Swelling Verified 03/19/17 02:40 Antibiotics) of Lip/Tongue/Throat ROS unobtainable: other (acute distress secondary to pain) All Systems PM: A 10-system review of systems was performed and is negative for pertinent findings except as documented above in the HPI. - Constitutional Constitutional: chills, fever(s) - Cardiovascular Cardiovascular ROS IM: chest pain, dyspnea - Respiratory Respiratory: dyspnea - Gastrointestinal Gastrointestinal: abdominal pain, dyspepsia, nausea, vomiting, no change in bowel habits, no constipation, no diarrhea, no hematochezia, no melena - Constitutional Vitals: Temp Pulse Resp BP Pulse Ox 98.2 F 75 18 120/47 95 03/21/17 17:17 03/21/17 17:17 03/21/17 17:17 03/21/17 17:17 03/21/17 17:17 Exam: Gen.: Vitals noted. Unable to obtain full physical exam due to patient's distress and pain. - Severe distress secondary to pain. Rocking back and forth. tearful. Internal Med - H&P Results - Labs CBC & Chem 7: 03/21/17 13:37 03/21/17 13:37
--- NOTE | 2017-03-21 20:48 | General Surgery Consult Note ---
Date of Encounter: 03/23/17 Time of Encounter: 20:46 Assessment and Plan (1) Abdominal pain Current Visit: Yes Status: Acute See below Qualifiers: Abdominal location: right upper quadrant Qualified Code(s): R10.11 - Right upper quadrant pain (2) Duodenitis Current Visit: Yes Status: Acute I explained to the patient and family members that I personally reviewed the CT scan images and report. There is a suggestion that she may be experiencing significant duodenitis with either a duodenal ulcer possible contained perforation. To them that there is no role for surgical intervention since there is no sign of free air or free fluid or extravasation of gastric material. Do not think she has any type or signs of ischemic bowel disease that would necessitate surgical exploration. The most important features of this will be IV antibiotics and IV fluid hydration as well as pain control. Due to the patient's past medical history and significant prescribed medication I do think that her pain medication will need to be adjusted. I have changed her IV pain medication to hydromorphone and have added Carafate to her oral regimen. Discussed with the patient and family and I will also inform Dr. Villalba once he returns tomorrow about the patient's admission to the hospital. History of Present Illness Consult date: 03/21/17 Reason for consult: abdominal pain (RUQ abdominal pain) History of present illness: The patient is a 51 year old female with a past medical history significant for sore, depression, fibromyalgia, and GERD who underwent a laparoscopic cholecystectomy on 03/10/2017 presents to [facility] with severe epigastric right upper quadrant abdominal pain. He was last seen in the office on 03/19/2017 due to continued postoperative right upper quadrant epigastric abdominal pain following her gallbladder surgery. She has been referred back to gastroenterology but due to the worsening pain the patient presented to the ER this evening. The patient states that her pain now is worse than it has been even though it is in the same area and similar type of pain that she has been experiencing since January this year. She admits to nausea and vomiting but denies any diarrhea or constipation or rectal bleeding. She presents to the emergency room multiple times due to the same type of pain symptoms and has had CT scans performed on 01/12/2017, 01/14/2017, 03/09/2017, and 03/19/2017. This evaluation the been evidence or suggestion of possible pancreatic head is versus duodenitis. She did have a mildly elevated lipase level during one of her admissions with a value of approximately 160. She has had gallbladder ultrasound studies (01/12/17) which did not show sludge or gallstones, and she did have an EGD performed by gastroenterology to [facility] 2016 which showed esophagitis. She has had a previous gastric bypass surgery which made evaluation of the duodenum challenging. Past Med Surg Social Fam HX - Past Medical History Medical history: fibromyalgia, GERD, migraine Psychiatric history: anxiety, depression - Past Surgical History Surgical History: cholecystectomy, other (Gastric bypass) - Social History Smoking Status: Former smoker Smokeless Tobacco Status: No Alcohol use: none Drug use: none - Family History Mother Living Status: Still Living Hx Family Endocrine Disorder: Yes (Diabetes Mellitus) Father Living Status: Hx Family Cancer: Yes (throat cancer) Sister Living Status: Still Living Hx Family Cardiac Disorders: Yes (Multiple [place]) Hx Family Endocrine Disorder: Yes (Diabetes Mellitus) Medications and Allergies Acetaminophen [Tylenol] 500 mg PO Q6H PRN 01/12/17 [History] Acetaminophen/Butalbital/Caffe [Fioricet] 1 tab PO DAILY PRN 01/12/17 [History] Ranitidine HCl [Zantac] 150 mg PO BID 01/12/17 [History] Tramadol HCl [Ultram] 50 mg PO TID PRN 01/12/17 [History] Zolpidem [Ambien] 10 mg PO HS 01/12/17 [History] lamoTRIgine [Lamictal] 200 mg PO HS 01/12/17 [History] Amitriptyline [Elavil] 50 mg PO DAILY 03/10/17 [History] FLUoxetine HCl [Fluoxetine HCl] 60 mg PO DAILY 03/10/17 [History] Omeprazole [PriLOSEC] 20 mg PO DAILY 03/10/17 [History] SUMAtriptan succinate [Imitrex] 50 mg PO Q2H PRN 03/10/17 [History] Docusate [Colace] 100 mg PO BID #30 capsule 03/11/17 [Rx] OxyCODONE/APAP 5/325 [Percocet 5/325 MG] 1 tab PO Q4HR PRN 03/21/17 [History] 3 Allergy/AdvReac Type Severity Reaction Status Date / Time metoclopramide [From Reglan] Allergy See Verified 03/19/17 02:40 Comments Penicillins Allergy Anaphylaxis Verified 03/19/17 02:40 Sulfa (Sulfonamide Allergy Swelling Verified 03/19/17 02:40 Antibiotics) of Lip/Tongue/Throat Review of Systems All systems PM: reviewed and no additional remarkable complaints except as stated All systems PM: A 10-system review of systems was performed and is negative for pertinent findings except as documented above in the HPI. General Surgery Exam Initial Vital Signs Temp Pulse Resp BP Pulse Ox 98.2 F 85 20 132/89 95 03/21/17 13:20 03/21/17 13:20 03/21/17 13:20 03/21/17 13:20 03/21/17 13:20 - General physical appearance severe distress - Respiratory normal expansion, normal respiratory effort - Cardiovascular Cardiovascular exam: Present: RRR, no murmurs/rubs/gallops - Abdomen Abdomen general surgery: Present: bowel sounds present, soft, tender (noted pain in the upper abdomen. Mainly located in the RUQ.) - Neurologic Present: CN 2-12 grossly intact - Musculoskeletal Present: other (No clubbing cyanosis or edema.) Exam Initial Vital Signs Temp Pulse Resp BP Pulse Ox 98.2 F 85 20 132/89 95 03/21/17 13:20 03/21/17 13:20 03/21/17 13:20 03/21/17 13:20 03/21/17 13:20 Results - Labs 03/23/17 03:08 03/23/17 03:08 Abnormal lab results RBC 5.15 M/mcL (3.82-4.97) H 03/21/17 13:37 Hct 46.0 % (35.3-44.9) H 03/21/17 13:37 Total Bilirubin < 0.2 mg/dL (0.2-1.2) L 03/21/17 13:37 Alkaline Phosphatase 185 Units/L (38-126) H 03/21/17 13:37 Globulin 3.9 g/dL (2.4-3.5) H 03/21/17 13:37 Albumin/Globulin Ratio 1.0 (1.1-2.2) L 03/21/17 13:37 Ur Leukocyte Esterase Small (Negative) H 03/21/17 13:37 Urine Microscopic WBC 5-15 per hpf (0-3) H 03/21/17 13:37 Ur Squamous Epith Cells Many per lpf (None-Few) H 03/21/17 13:37 Ur Culture Indicated? YES (NO) A 03/21/17 13:37 All other labs normal. - Imaging CT scan - abdomen: report reviewed, image reviewed (CT images have been reviewed by me personally. Suggestion of duodenitis versus duodenal ulcer or a perforated but contained duodenal ulcer. No free air or free fluid is identified.) Consult Discharge Plan - Plan Referrals: Delphine Silva MD [Primary Care Provider] - (Office will call with appt. Thank you)
[2017-03-21] MEDS: 0.9 % Sodium Chloride 1,000 ML IVC SCH (22:24)
[2017-03-21] MEDS: Sucralfate 1 GM TABLET PO SCH (22:27)
[2017-03-21] MEDS: lamoTRIgine 100 MG TABLET PO SCH (22:27)
[2017-03-21] MEDS: *HR* HYDROmorphone (PF) 1 MG/ML SYRINGE IVP PRN (22:27)
[2017-03-21] MEDS: *HR* LORazepam 2 MG/ML VIAL IVP PRN (22:28)
--- NOTE | 2017-03-21 23:33 | Event Note ---
Date of Encounter: 03/21/17 Time of Encounter: 21:00 Discussed with resident and agree with assessment and plan. Also discussed with on-call general surgeon who evaluated the patient and recommends supportive care with IV fluids and pain management control for gastroduodenitis. Will continue to monitor and surgery will follow.
[2017-03-22] MEDS: MetroNIDAZOLE 500 MG/100 ML 500 MG/100 ML BAG IVPB SCH ×3 (01:21→16:03)
[2017-03-22] MEDS: *HR* Promethazine 25 MG/ML VIAL IVP PRN ×3 (03:56→19:36)
[2017-03-22] MEDS: *HR* HYDROmorphone (PF) 1 MG/ML SYRINGE IVP PRN ×4 (03:56→19:30)
[2017-03-22 05:46] LABS: Basophils % 0.4 %; Eosinophils # 0.1 K/mcL (0.0-0.6); Eosinophils % 1.5 %; Hematocrit 37.5 % (35.3-44.9); Immature Granulocytes % 0.2 % (0-4); Lymphocytes # 1.4 K/mcL (0.6-4.6); Lymphocytes % 25.5 %; Mean Corpuscular Hemoglobin 28.3 pg (28.0-33.3); Mean Corpuscular Volume 88.4 fL (83.0-100.0); Monocytes # 0.4 K/mcL (0.0-1.3); Monocytes % 7.3 %; Neutrophils # 3.6 K/mcL (1.6-8.9); Platelet Count 262 K/mcL (140-400); Red Blood Count 4.24 M/mcL (3.82-4.97); Red Cell Distribution Width 13.5 % (11.5-14.5); Segmented Neutrophils % 65.1 %
[2017-03-22] MEDS: Pantoprazole 40 MG VIAL IVP SCH ×2 (06:15→18:32)
[2017-03-22 06:17] LABS: BUN/Creatinine Ratio 11 (6-26); Blood Urea Nitrogen 8 mg/dL (7-20); Calcium 8.4 mg/dL (8.6-10.8); Carbon Dioxide 24 mEq/L (19-29); Chloride 109 mEq/L (98-109); Glucose 94 mg/dL (70-99); Osmolality,Calculated 290 (280-300); Potassium 3.9 mEq/L (3.5-4.5); Sodium 141 mEq/L (136-145); eGFR For African Americans > 60 (> 60); eGFR For Non-African Americans > 60 (> 60)
[2017-03-22] MEDS: Sucralfate 1 GM TABLET PO SCH ×4 (08:11→21:35)
[2017-03-22] MEDS: FLUoxetine 20 MG CAPSULE PO SCH (09:04)
[2017-03-22] MEDS: 0.9 % Sodium Chloride 1,000 ML IVC SCH ×2 (09:06→19:31)
[2017-03-22] MEDS ORDERED: *HR* HYDROcodone/Acet 5/325 mg TABLET PO PRN (13:07)
--- NOTE | 2017-03-22 15:08 | Electrocardiograph Report ---
[place] [id number] Test Date: 2017-03-21 Pat Name: Teresa Arciniega Department: 115 Room: 3A15 Gender: F [employer]: [id number] : 1965 Requested By: Angel Flowers Order Number: [id number] Reading MD: Macho Chew MD Measurements Intervals [place] Rate: 78 P: 37 UT: 141 QRS: -1 QRSD: 90 T: 13 QT: 371 QTc: 404 Interpretive Statements SINUS RHYTHM BASELINE ARTIFACT Electronically Signed On 03-22-2017 15:07:30 EST by Macho Chew MD
[2017-03-22] MEDS ORDERED: Ketorolac 30 MG/ML VIAL IVP PRN (15:20)
[2017-03-22] MEDS ORDERED: Acetaminophen IV 1,000 MG/100 ML INFUS..BTL IVPB PRN (15:23)
--- NOTE | 2017-03-22 15:25 | General Surgery Progress Note ---
<Farncisca Ling - Last Filed: 03/22/17 15:21> Date of Encounter: 03/22/17 Time of Encounter: 15:00 - Assessment and Plan (1) Duodenitis Current Visit: Yes Status: Acute NPO except meds and ice chips IV fluids Supportive care and pain control No surgical intervention indicated Recommend gastroenterology consult for further evaluation and treatment PPI therapy daily Surgery will sign off at this time. Thank you for allowing us to participate in the care of this patient. Please call with any further questions/concerns. (2) Abdominal pain Current Visit: Yes Status: Acute See duodenitis plan Ofirmev for mild pain and Dilaudid for severe pain Qualifiers: Abdominal location: right upper quadrant Qualified Code(s): R10.11 - Right upper quadrant pain (3) S/P cholecystectomy Current Visit: No Status: Acute Patient recovering well from gallbladder surgery No concerns noted from surgical standpoint Subjective Patient reports: still having pain, voiding w/o difficulty, flatus, bowel movement, afebrile Objective Vital Signs - Last 8 Hours Temp Pulse Resp BP Pulse Ox 03/22/17 14:39 98.1 F 82 14 104/72 98 03/22/17 10:59 97.9 F 71 15 99/66 97 Intake and Output 03/21/17 03/22/17 03/22/17 23:59 07:59 15:59 Intake Total 1100 / 1100 0 / 0 Output Total 0 / 0 0 / 0 Balance 1100 / 1100 0 / 0 Intake: IV Fluids 1100 / 1100 0.9 % Sodium Chloride 1,000 ML 1000 / 1000 @ 125 mls/hr IVC .Q8H ARLET Rx#: [id number] Flagyl Premix 500 MG/100 ML 500 100 / 100 mg In 100 ml @ 100 mls/hr IVPB Q8HR ARLET Rx#:[id number] Oral 0 / 0 0 / 0 Output: Urine 0 / 0 0 / 0 Other: Meal NPO Percent of Meal Consumed 0% # Voids 1 Blood Glucose* 91 87 - General physical appearance well developed, well nourished, no distress - Eyes normal ocular movement - ENT normal mucosa, atraumatic, normocephalic - Neck Neck exam: trachea midline - Respiratory normal respiratory effort, clear to auscultation - Cardiovascular Cardiovascular exam: Present: RRR - Abdomen Abdomen: Present: bowel sounds present, soft, tender Abdominal Tenderness: epigastic, RUQ - Incision Incision: Present: clean and dry, intact - Integumentary no rash - Neurologic CN 2-12 grossly intact - Musculoskeletal normal gait, normal posture - Psychiatric oriented to time, oriented to person, oriented to place, speech is normal, memory intact - Labs 03/22/17 04:34 03/22/17 04:34 Diabetes panel 03/22/17 Range/Units 04:34 Sodium 141 (136-145) mEq/L Potassium 3.9 (3.5-4.5) mEq/L Chloride 109 (98-109) mEq/L Carbon Dioxide 24 (19-29) mEq/L BUN 8 (7-20) mg/dL Creatinine 0.75 (0.57-1.11) mg/dL Glucose 94 (70-99) mg/dL Calcium 8.4 L (8.6-10.8) mg/dL Calcium panel 03/22/17 Range/Units 04:34 Calcium 8.4 L (8.6-10.8) mg/dL Pituitary panel 03/22/17 Range/Units 04:34 Sodium 141 (136-145) mEq/L Potassium 3.9 (3.5-4.5) mEq/L Chloride 109 (98-109) mEq/L Carbon Dioxide 24 (19-29) mEq/L BUN 8 (7-20) mg/dL Creatinine 0.75 (0.57-1.11) mg/dL Glucose 94 (70-99) mg/dL Calcium 8.4 L (8.6-10.8) mg/dL Adrenal panel 03/22/17 Range/Units 04:34 Sodium 141 (136-145) mEq/L Potassium 3.9 (3.5-4.5) mEq/L Chloride 109 (98-109) mEq/L Carbon Dioxide 24 (19-29) mEq/L BUN 8 (7-20) mg/dL Creatinine 0.75 (0.57-1.11) mg/dL Glucose 94 (70-99) mg/dL Calcium 8.4 L (8.6-10.8) mg/dL Consult Discharge Plan - Plan Referrals: Delphine Silva MD [Primary Care Provider] - - Attending Attestation For this encounter, I have reviewed the [employer] or PA documentation, treatment plan, and medical decision making; and I have had face to face time with this patient. <Nura Villalba - Last Filed: 03/22/17 16:02> Date of Encounter: 03/22/17 Objective Vital Signs - Last 8 Hours Temp Pulse Resp BP Pulse Ox 03/22/17 14:39 98.1 F 82 14 104/72 98 03/22/17 10:59 97.9 F 71 15 99/66 97 Intake and Output 03/22/17 03/22/17 03/22/17 07:59 15:59 23:59 Intake Total 1100 / 1100 0 / 0 Output Total 0 / 0 0 / 0 Balance 1100 / 1100 0 / 0 Intake: IV Fluids 1100 / 1100 0.9 % Sodium Chloride 1,000 ML 1000 / 1000 @ 125 mls/hr IVC .Q8H ARLET Rx#: [id number] Flagyl Premix 500 MG/100 ML 500 100 / 100 mg In 100 ml @ 100 mls/hr IVPB Q8HR ARLET Rx#:[id number] Oral 0 / 0 0 / 0 Output: Urine 0 / 0 0 / 0 Other: Meal NPO Percent of Meal Consumed 0% # Voids 1 Blood Glucose* 91 87 - Labs 03/22/17 04:34 03/22/17 04:34 Diabetes panel 03/22/17 Range/Units 04:34 Sodium 141 (136-145) mEq/L Potassium 3.9 (3.5-4.5) mEq/L Chloride 109 (98-109) mEq/L Carbon Dioxide 24 (19-29) mEq/L BUN 8 (7-20) mg/dL Creatinine 0.75 (0.57-1.11) mg/dL Glucose 94 (70-99) mg/dL Calcium 8.4 L (8.6-10.8) mg/dL Calcium panel 03/22/17 Range/Units 04:34 Calcium 8.4 L (8.6-10.8) mg/dL Pituitary panel 03/22/17 Range/Units 04:34 Sodium 141 (136-145) mEq/L Potassium 3.9 (3.5-4.5) mEq/L Chloride 109 (98-109) mEq/L Carbon Dioxide 24 (19-29) mEq/L BUN 8 (7-20) mg/dL Creatinine 0.75 (0.57-1.11) mg/dL Glucose 94 (70-99) mg/dL Calcium 8.4 L (8.6-10.8) mg/dL Adrenal panel 03/22/17 Range/Units 04:34 Sodium 141 (136-145) mEq/L Potassium 3.9 (3.5-4.5) mEq/L Chloride 109 (98-109) mEq/L Carbon Dioxide 24 (19-29) mEq/L BUN 8 (7-20) mg/dL Creatinine 0.75 (0.57-1.11) mg/dL Glucose 94 (70-99) mg/dL Calcium 8.4 L (8.6-10.8) mg/dL - Attending Attestation The patient was seen and evaluated on morning rounds. She had no pain whatsoever this morning. She underwent laparoscopic cholecystectomy with the assumption that part of her pain syndrome with biliary dyskinesia. The surgery went well and there are no surgical complications. She appears to have a recurrence of her epigastric pain that was identical to her preoperative pain syndrome. This is obviously related to the CAT scan abnormalities around the duodenum and head of the pancreas. This area is quite difficult to visualize because because of her previous Geeta-en-Y gastric bypass. I would recommend continued supportive care and evaluation by gastroenterology. Nura Villalba MD FACS
--- NOTE | 2017-03-22 16:50 | Internal Med Progress Note ---
Date of Encounter: 03/22/17 Time of Encounter: 16:36 - Assessment and plan (1) Abdominal pain Current Visit: Yes Status: Acute Assessment and plan: secondary to Duodenitis continue PPI and Carafate pain control surgery consultation appreciated, no further surgical intervention recommended GI evaluation requested will start clear liquid diet at this time Qualifiers: Abdominal location: right upper quadrant Qualified Code(s): R10.11 - Right upper quadrant pain (2) Duodenitis Current Visit: Yes Status: Acute Assessment and plan: continue empiric abx, PPI, carafate IV fluids pain control GI evaluation requested (3) DVT prophylaxis Current Visit: Yes Status: Acute Assessment and plan: SCDs (4) GERD (gastroesophageal reflux disease) Current Visit: No Status: Chronic Assessment and plan: continue PPI Qualifiers: Esophagitis presence: with esophagitis Qualified Code(s): K21.0 - Gastro- esophageal reflux disease with esophagitis (5) S/P cholecystectomy Current Visit: No Status: Chronic - Subjective Interval history: Patient seen and examined with family present at bedside. States she continues to have epigastric pain at this time, improves with pain medication. She is s/p lap denys on 03/10 and as per surgery, no further surgical intervention is recommended. GI consultation is requested for possible EGD given persistent epigastric discomfort. - Constitutional Vitals: Temp Pulse Resp BP Pulse Ox 98.1 F 82 14 104/72 98 03/22/17 14:39 03/22/17 14:39 03/22/17 14:39 03/22/17 14:39 03/22/17 14:39 General appearance: Present: A&O X 3, no acute distress, obese, answers questions appropriately - Head Head exam: Present: atraumatic, normocephalic - Eye Eye exam: Present: conjuntiva pink, sclera anicteric - Respiratory Respiratory exam: Present: CTAB. Absent: respiratory distress, wheezes - Cardiovascular Cardiovascular exam: Present: RRR, +S1, +S2. Absent: diastolic murmur, gallop, rubs, systolic murmur - GI/Abdominal GI/Abdominal exam: Present: normal bowel sounds, soft, tenderness (epigastric tenderness to palpation), no peritoneal signs. Absent: distended - Extremities Exam Extremities exam: Present: warm, radial pulses palpable and symmetrical. Absent : calf tenderness, cyanotic, pedal edema - Neurological Exam Neurological exam: Present: alert, oriented X3 - Psychiatric Psychiatric exam: Present: normal affect, normal mood Internal Medicine: Result - Labs CBC & Chem 7: 03/22/17 04:34 03/22/17 04:34 Labs: Short CBC 03/22/17 Range/Units 04:34 WBC 5.5 (4.3-11.1) K/mcL Hgb 12.0 D (11.5-15.4) g/dL Hct 37.5 (35.3-44.9) % Plt Count 262 (140-400) K/mcL Neutrophils # 3.6 (1.6-8.9) K/mcL BMP 03/22/17 04:34 Sodium 141 Potassium 3.9 Chloride 109 Carbon Dioxide 24 BUN 8 Creatinine 0.75 Glucose 94 Calcium 8.4 L Consult Discharge Plan - Plan Referrals: Delphine Silva MD [Primary Care Provider] - (Office will call with appt. Thank you)
[2017-03-22] MEDS: SUMAtriptan succinate 50 MG TABLET PO PRN (18:05)
[2017-03-22] MEDS: lamoTRIgine 100 MG TABLET PO SCH (21:35)
[2017-03-23] MEDS: MetroNIDAZOLE 500 MG/100 ML 500 MG/100 ML BAG IVPB SCH ×3 (00:23→15:25)
[2017-03-23] MEDS: *HR* HYDROmorphone (PF) 1 MG/ML SYRINGE IVP PRN ×6 (01:20→22:22)
[2017-03-23] MEDS: SUMAtriptan succinate 50 MG TABLET PO PRN (02:10)
[2017-03-23 03:49] LABS: BUN/Creatinine Ratio 8 (6-26); Blood Urea Nitrogen 6 mg/dL (7-20); Calcium 8.2 mg/dL (8.6-10.8); Carbon Dioxide 24 mEq/L (19-29); Chloride 110 mEq/L (98-109); Glucose 83 mg/dL (70-99); Magnesium 1.7 mg/dL (1.6-2.6); Osmolality,Calculated 291 (280-300); Phosphorous 4.1 mg/dL (2.3-4.7); Potassium 3.8 mEq/L (3.5-4.5); Sodium 142 mEq/L (136-145); eGFR For African Americans > 60 (> 60); eGFR For Non-African Americans > 60 (> 60)
[2017-03-23] MEDS: 0.9 % Sodium Chloride 1,000 ML IVC SCH ×2 (03:56→09:53)
[2017-03-23 04:04] LABS: Basophils % 0.4 %; Eosinophils # 0.2 K/mcL (0.0-0.6); Hematocrit 37.4 % (35.3-44.9); Hemoglobin 11.9 g/dL (11.5-15.4); Immature Granulocytes % 0.4 % (0-4); Lymphocytes # 1.1 K/mcL (0.6-4.6); Lymphocytes % 20.2 %; Mean Corpuscular HGB Conc 31.8 g/dL (31.6-35.5); Mean Corpuscular Hemoglobin 28.7 pg (28.0-33.3); Mean Corpuscular Volume 90.3 fL (83.0-100.0); Mean Platelet Volume 10.8 fL (9.4-12.4); Monocytes # 0.5 K/mcL (0.0-1.3); Monocytes % 9.1 %; Neutrophils # 3.5 K/mcL (1.6-8.9); Platelet Count 228 K/mcL (140-400); Red Blood Count 4.14 M/mcL (3.82-4.97); Red Cell Distribution Width 13.4 % (11.5-14.5); Segmented Neutrophils % 66.9 %
[2017-03-23] MEDS: *HR* Promethazine 25 MG/ML VIAL IVP PRN ×2 (05:06→18:52)
[2017-03-23] MEDS: Pantoprazole 40 MG VIAL IVP SCH ×2 (05:45→17:41)
[2017-03-23] MEDS: Sucralfate 1 GM TABLET PO SCH ×4 (07:51→20:18)
[2017-03-23] MEDS: FLUoxetine 20 MG CAPSULE PO SCH (07:51)
[2017-03-23] MEDS: Ondansetron 4 MG/2 ML VIAL IVP PRN ×2 (08:03→22:23)
--- NOTE | 2017-03-23 08:50 | Gastroenterology Consult Note ---
Date of Encounter: 03/23/17 Time of Encounter: 08:48 - Assessment and plan (1) Duodenitis Current Visit: Yes Status: Acute Assessment and plan: 51-year-old female with epigastric pain is described as sharp radiating to her back with recurrent evaluations without resolution over last several weeks. Status post cholecystectomy on 03/10/2017 without resolution of symptoms. She continues to have abdominal pain which fluctuates and intensity and associated with nausea and vomiting described as white and with bubbles. Significant past medical history: Cholecystectomy 2 weeks ago, gastric bypass greater than 10 years ago, history of peptic ulcer disease, GERD, hiatal hernia , small bowel obstruction 1.5 years ago, recurrent abdominal MRSA infections. CT of the abdomen obtained 03/21/2017 demonstrates duodenitis with interval development of a 1.2 x 0.9 cm focal fluid collection immediately adjacent to the medial descending duodenum likely focal ulceration or less likely contained perforation. Significant laboratory findings: Normal AST and ALT, elevated alkaline phosphatase which may be secondary to duodenitis, normal lipase, normal WBC count - Patient denies any recent EGD or evaluation of the esophagus, gastric cavity or small bowel. - Patient currently nothing by mouth except for clear liquids and has been for over 24 hours. Differential diagnosis: Duodenitis, duodenal ulcer, microperforation, contained MRSA abscess ( less likely as patient does not have elevated WBC counts but given history still considered differential), H. pylori, bacterial infection of the duodenum. Plan: - Continue current antibiotics of ciprofloxacin and metronidazole, consider expanding to vancomycin if patient does not show improvement with history of MRSA - Nothing by mouth including clear liquids - Continue PPI and Carafate - Possible EGD today (2) GERD (gastroesophageal reflux disease) Current Visit: No Status: Chronic Assessment and plan: Known history of GERD, patient to continue taking Carafate and Protonix 40 mg IV daily Qualifiers: Esophagitis presence: with esophagitis Qualified Code(s): K21.0 - Gastro- esophageal reflux disease with esophagitis (3) History of bariatric surgery Current Visit: No Status: Chronic Assessment and plan: Significant past medical history as abdominal anatomy will be altered. - Time Spent With Patient Total time spent is greater than 50% in coordination of care (as documented) at patient's floor/unit and/or counseling patient: GI History of Present Illness - Data of Consult Consult date: 03/23/17 Requesting Physician: Val Restrepo MD - Consult Narrative Reason for consult: duodenitis History of present illness: Ms. Arciniega is a 51 year old female significant past medical history of recent cholecystectomy 2 weeks ago, history of gastric bypass greater than 10 years ago , depression, fibromyalgia, GERD, peptic ulcer disease, hiatal hernia, MRSA, obesity admitted to the hospital with severe epigastric discomfort described as sharp radiating from her abdomen through her back and fluctuates in intensity. The pain is constant but the intensity varies moment to moment. She states that is been going on for several weeks and she has been hospitalized in [place] and seen in the emergency department but is always sent home. She has associated symptoms of chills and vomits which she describes as white and with bubbles. She denies pain association with eating or within an hour after eating. She is unsure of any preceding factors and recently underwent cholecystectomy with hopes to relieve this discomfort. She denies any fevers, headaches, blurry vision, shortness of breath, chest pain or palpitations, diarrhea or constipation. She states that she has a bowel movement every few days and this is been her regular for years. She has been taking omeprazole for several years with her history of peptic ulcer disease and GERD but recently has been taking Carafate daily she was prescribed at roughly 1 week ago. She has a history of EGD greater than 4 years ago at an outside facility for peptic ulcer disease for which a hiatal hernia was identified. She states that one year ago she had a small bowel obstruction secondary to adhesions which she required laparotomy and adhesion takedown but did not require any bowel resection. She does say she has had a recurrence MRSA infections and abscesses in her abdomen which have required drainage and packing with the last one several months ago. Roughly one month ago she had a MRSA infection on her lower left extremity. She says that her last colonoscopy was at age 48 at an outside facility and wound there were no significant findings. She denies any blood in her sputum, vomiting, stools or any dark tarry stool, blood in her urine. Her father had esophageal cancer and her mother has diabetes but there is no other significant history of GI cancers that she is aware of. Colonoscopy: Screening at age 48 outside facility EGD: Greater than 4 years ago. Past Med Surg Social Fam HX - Past Medical History Medical history: fibromyalgia, GERD, migraine Psychiatric history: anxiety, depression - Past Surgical History Surgical History: cholecystectomy, other (Gastric bypass) - Social History Smoking Status: Former smoker Smokeless Tobacco Status: No Alcohol use: none Drug use: none - Family History Mother Living Status: Still Living Hx Family Endocrine Disorder: Yes (Diabetes Mellitus) Father Living Status: Age at : 54 Cause of : Throat Cancer Hx Family Cardiac Disorders: No Hx Family Respiratory Disorders: Yes (COPD, emphysema) Hx Family Cancer: Yes (throat cancer) Hx Family GI Disorders: No Hx Family Genitourinary Disorders: No Hx Family Endocrine Disorder: No Hx Family Musculoskeletal Disorders: No Hx Family Neuromuscular Disorders: No Hx Family Neurologic Disorders: No Hx Family HEENT Disorders: No Hx Family Autoimmune Disorders: No Hx Family Reproductive Disorders: No Hx Family Psychosocial Disorders: No Hx Family Medical Disorders: No Sister Living Status: Still Living Hx Family Cardiac Disorders: Yes (Multiple IA) Hx Family Endocrine Disorder: Yes (Diabetes Mellitus) - Gastrointestinal Gastrointestinal: Present: abdominal pain, dyspepsia, nausea, vomiting. Absent : bloating, change in bowel habits, coffee ground emesis, constipation, diarrhea , heartburn, hematemesis, hematochezia, melena - Constitutional Constitutional: other (Chills), no fatigue, no fever(s), no weight gain - EENT Ears: Absent: ear pain Nose, mouth and throat: Absent: dysphagia, hoarseness, sore throat - Cardiovascular Cardiovascular ROS: Absent: chest pain, palpitations - Respiratory Respiratory IM: Absent: dyspnea, hemoptysis - Genitourinary Genitourinary: Absent: change in color - Neurological ROS Neurological GI: Absent: confusion, dizziness, frequent falls, headache(s) - Integumentary Integumentary GI: Absent: jaundice, pruritis - Endocrine Endocrine IM: Absent: cold intolerance - Constitutional Vitals: Temp Pulse Resp BP Pulse Ox 98.1 F 68 16 115/77 99 03/23/17 06:53 03/23/17 06:53 03/23/17 06:53 03/23/17 06:53 03/23/17 06:53 General appearance: Present: cooperative, A&O X 3, pleasant, no acute distress Exam: General: Patient alert, awake, oriented 3, interactive, in no acute distress HEENT: Normocephalic, atraumatic, pupils equal reactive to light, nasal cavity patent and open septum median position, oral mucosa moist, uvula midline, neck supple trachea midline no palpable lymphadenopathy, no thyromegaly. Chest: Symmetric bilateral correlating with respiratory effort, effort nonlabored. Cardiac: Regular rate and rhythm, positive S1 and S2. no bruits appreciated bilateral carotids, Radial pulses 2+ bilateral, posterior tibial and dorsal pedal pulses 2+ bilateral. Respiratory: Clear to auscultation all lung caceres Abdomen: Soft, nontender, positive bowel sounds, healing laparotomy scars, no erythema or edema. no palpable masses appreciated on examination Extremities: Symmetric bilateral, bilateral lower extremities without erythema or edema patient moving all 4 extremities spontaneously. Neurologic: No focal deficits appreciated on examination. Face symmetric, muscle strength symmetric bilateral upper and lower extremities. Results - Labs CBC & Chem 7: 03/23/17 03:08 03/23/17 03:08 Labs: Last Result Calcium 8.2 mg/dL (8.6-10.8) L 03/23/17 03:08 Entire Visit Hgb 11.9 g/dL (11.5-15.4) 03/23/17 03:08 Hct 37.4 % (35.3-44.9) 03/23/17 03:08 Total Bilirubin < 0.2 mg/dL (0.2-1.2) L 03/21/17 13:37 AST 20 Units/L (5-34) 03/21/17 13:37 ALT 16 Units/L (0-55) 03/21/17 13:37 Amylase 65 Units/L (25-125) 03/21/17 13:37 Lipase 19 Units/L (8-78) 03/21/17 13:37 Consult Discharge Plan - Plan Referrals: Delphine Silva MD [Primary Care Provider] - (Office will call with appt. Thank you)
[2017-03-23] MEDS: *HR* LORazepam 2 MG/ML VIAL IVP PRN (09:53)
--- NOTE | 2017-03-23 16:11 | Internal Med Progress Note ---
Date of Encounter: 03/23/17 Time of Encounter: 15:10 - Assessment and plan (1) Abdominal pain Current Visit: Yes Status: Acute Assessment and plan: secondary to Duodenitis continue PPI and Carafate pain control surgery consultation appreciated, no further surgical intervention recommended GI evaluation appreciated, scheduled for EGD in am, NPO after midnight Qualifiers: Abdominal location: right upper quadrant Qualified Code(s): R10.11 - Right upper quadrant pain (2) Duodenitis Current Visit: Yes Status: Acute Assessment and plan: continue empiric abx, PPI, carafate pain control GI evaluation appreicated (3) DVT prophylaxis Current Visit: Yes Status: Acute Assessment and plan: SCDs (4) GERD (gastroesophageal reflux disease) Current Visit: No Status: Chronic Assessment and plan: continue PPI Qualifiers: Esophagitis presence: with esophagitis Qualified Code(s): K21.0 - Gastro- esophageal reflux disease with esophagitis (5) S/P cholecystectomy Current Visit: No Status: Chronic - Subjective Interval history: Patient seen and examined at bedside. REsting in bed and reports of feeling better compared to previous day. GI evaluation noted, scheduled for EGD in am. - Constitutional Vitals: Temp Pulse Resp BP Pulse Ox 97.9 F 74 16 101/68 96 03/23/17 15:43 03/23/17 15:43 03/23/17 15:43 03/23/17 15:43 03/23/17 15:43 General appearance: Present: A&O X 3, no acute distress, obese, answers questions appropriately - Head Head exam: Present: atraumatic, normocephalic - Eye Eye exam: Present: conjuntiva pink, sclera anicteric - Respiratory Respiratory exam: Present: CTAB. Absent: accessory muscle use, rales, rhonchi, wheezes - Cardiovascular Cardiovascular exam: Present: RRR, +S1, +S2. Absent: diastolic murmur, gallop, rubs, systolic murmur - GI/Abdominal GI/Abdominal exam: Present: normal bowel sounds, soft, no peritoneal signs. Absent: distended, tenderness - Extremities Exam Extremities exam: Present: warm, radial pulses palpable and symmetrical. Absent : calf tenderness, cyanotic, pedal edema - Neurological Exam Neurological exam: Present: alert, oriented X3 Internal Medicine: Result - Labs CBC & Chem 7: 03/23/17 03:08 03/23/17 03:08 Labs: Short CBC 03/23/17 Range/Units 03:08 WBC 5.3 (4.3-11.1) K/mcL Hgb 11.9 (11.5-15.4) g/dL Hct 37.4 (35.3-44.9) % Plt Count 228 (140-400) K/mcL Neutrophils # 3.5 (1.6-8.9) K/mcL BMP 03/23/17 03:08 Sodium 142 Potassium 3.8 Chloride 110 H Carbon Dioxide 24 BUN 6 L Creatinine 0.75 Glucose 83 Calcium 8.2 L Consult Discharge Plan - Plan Referrals: Delphine Silva MD [Primary Care Provider] - (Office will call with appt. Thank you)
[2017-03-23] MEDS: lamoTRIgine 100 MG TABLET PO SCH (20:19)
[2017-03-24] MEDS: MetroNIDAZOLE 500 MG/100 ML 500 MG/100 ML BAG IVPB SCH ×4 (00:22→23:55)
[2017-03-24] MEDS: *HR* HYDROmorphone (PF) 1 MG/ML SYRINGE IVP PRN ×6 (03:37→21:10)
[2017-03-24] MEDS: *HR* Promethazine 25 MG/ML VIAL IVP PRN (03:54)
[2017-03-24] MEDS: Pantoprazole 40 MG VIAL IVP SCH ×2 (05:51→18:10)
[2017-03-24 06:52] LABS: Basophils % 0.6 %; Eosinophils # 0.2 K/mcL (0.0-0.6); Eosinophils % 6.5 %; Hematocrit 36.1 % (35.3-44.9); Hemoglobin 11.4 g/dL (11.5-15.4); Immature Granulocytes % 0.3 % (0-4); Lymphocytes % 28.8 %; Mean Corpuscular HGB Conc 31.6 g/dL (31.6-35.5); Mean Corpuscular Hemoglobin 28.5 pg (28.0-33.3); Mean Corpuscular Volume 90.3 fL (83.0-100.0); Mean Platelet Volume 10.8 fL (9.4-12.4); Monocytes # 0.4 K/mcL (0.0-1.3); Neutrophils # 1.9 K/mcL (1.6-8.9); Nucleated Red Blood Cells 0.6 /100 WBC (0); Platelet Count 225 K/mcL (140-400); Red Cell Distribution Width 13.4 % (11.5-14.5); Segmented Neutrophils % 52.8 %
[2017-03-24 07:24] LABS: BUN/Creatinine Ratio 5 (6-26); Calcium 8.4 mg/dL (8.6-10.8); Carbon Dioxide 28 mEq/L (19-29); Chloride 109 mEq/L (98-109); Glucose 95 mg/dL (70-99); Magnesium 1.8 mg/dL (1.6-2.6); Osmolality,Calculated 293 (280-300); Phosphorous 3.7 mg/dL (2.3-4.7); Potassium 3.2 mEq/L (3.5-4.5); eGFR For African Americans > 60 (> 60); eGFR For Non-African Americans > 60 (> 60)
[2017-03-24 07:25] LABS: Blood Urea Nitrogen 4 mg/dL (7-20); Sodium 143 mEq/L (136-145)
[2017-03-24] MEDS: FLUoxetine 20 MG CAPSULE PO SCH (07:45)
[2017-03-24] MEDS: Sucralfate 1 GM TABLET PO SCH ×4 (07:45→21:11)
[2017-03-24] MEDS ORDERED: Potassium Chloride 20 MEQ, Lidocaine 1% 2 ML in D5% in Water 250 ML IVPB ONE (07:56)
--- NOTE | 2017-03-24 10:25 | Internal Med Progress Note ---
Date of Encounter: 03/24/17 Time of Encounter: 10:23 - Assessment and plan (1) Abdominal pain Current Visit: Yes Status: Acute Assessment and plan: secondary to Duodenitis continue PPI and Carafate pain control surgery consultation appreciated, no further surgical intervention recommended GI evaluation appreciated, scheduled for EGD later today (03/24/17) Qualifiers: Abdominal location: right upper quadrant Qualified Code(s): R10.11 - Right upper quadrant pain (2) Duodenitis Current Visit: Yes Status: Acute Assessment and plan: continue empiric abx, PPI, carafate pain control GI evaluation appreicated (3) DVT prophylaxis Current Visit: Yes Status: Acute Assessment and plan: SCDs (4) GERD (gastroesophageal reflux disease) Current Visit: No Status: Chronic Assessment and plan: continue PPI Qualifiers: Esophagitis presence: with esophagitis Qualified Code(s): K21.0 - Gastro- esophageal reflux disease with esophagitis (5) S/P cholecystectomy Current Visit: Yes Status: Chronic (6) Hypokalemia Current Visit: Yes Status: Acute Assessment and plan: K supplemented continue to monitor electrolytes and replace as needed - Subjective Interval history: Patient seen and examined with family present at bedside.Reports of pain being better controlled Scheduled for EGD later today (03/24/17) - Constitutional Vitals: Temp Pulse Resp BP Pulse Ox 97.7 F 80 14 98/62 98 03/24/17 07:06 03/24/17 07:06 03/24/17 07:06 03/24/17 07:06 03/24/17 07:06 General appearance: Present: A&O X 3, no acute distress, obese, answers questions appropriately - Head Head exam: Present: atraumatic, normocephalic - Eye Eye exam: Present: conjuntiva pink, sclera anicteric - Respiratory Respiratory exam: Present: CTAB. Absent: accessory muscle use, rales, rhonchi, wheezes - Cardiovascular Cardiovascular exam: Present: RRR, +S1, +S2. Absent: diastolic murmur, gallop, rubs, systolic murmur - GI/Abdominal GI/Abdominal exam: Present: normal bowel sounds, soft, no peritoneal signs. Absent: distended, tenderness - Extremities Exam Extremities exam: Present: warm, radial pulses palpable and symmetrical. Absent : calf tenderness, cyanotic, pedal edema - Neurological Exam Neurological exam: Present: alert, oriented X3 - Psychiatric Psychiatric exam: Present: normal affect, normal mood Internal Medicine: Result - Labs CBC & Chem 7: 03/24/17 06:23 03/24/17 06:23 Labs: Short CBC 03/24/17 Range/Units 06:23 WBC 3.5 L (4.3-11.1) K/mcL Hgb 11.4 L (11.5-15.4) g/dL Hct 36.1 (35.3-44.9) % Plt Count 225 (140-400) K/mcL Neutrophils # 1.9 (1.6-8.9) K/mcL BMP 03/24/17 06:23 Sodium 143 Potassium 3.2 L Chloride 109 Carbon Dioxide 28 BUN 4 L Creatinine 0.82 Glucose 95 Calcium 8.4 L Consult Discharge Plan - Plan Referrals: Delphine Silva MD [Primary Care Provider] - (Office will call with appt. Thank you)
--- NOTE | 2017-03-24 12:28 | Anesthesia Evaluation PreOp ---
Date of Encounter: 03/24/17 Time of Encounter: 12:25 - Past History Planned Operation: EGD Cardiac History: Denies any Significant Hx (Lap Radha re: Biliary Colic Cardiac History: Denies any Significant Hx Pulmonary History: Denies Any Significant HX SUBSTATION INSPECTOR History: Other (Anxiety/Depression maintained on Prozac, Lamictal Hx of Migraines. Fibromyalgia) Other Medical History: GERD (w/Esophagitis maintained on Zantac, Omeprazole) Anesthesia History: No Prior Anesthetic Complications, Past Anesthesia (Gastric bypass, Expl Lap w/DONTA, T&A)) Pulmonary History: Former smoker SUBSTATION INSPECTOR History: Other (a/d, Migraines,) Other Medical History: GERD, Other (Fibromyalgia) Anesthesia History: No Prior Anesthetic Complications, Past Anesthesia (Gastric bypass, Expl Lap w/DONTA, T&A, GB) : No Alcohol Use: none Drug use: none Medications and Allergies Acetaminophen [Tylenol] 500 mg PO Q6H PRN 01/12/17 [History] Acetaminophen/Butalbital/Caffe [Fioricet] 1 tab PO DAILY PRN 01/12/17 [History] Ranitidine HCl [Zantac] 150 mg PO BID 01/12/17 [History] Tramadol HCl [Ultram] 50 mg PO TID PRN 01/12/17 [History] Zolpidem [Ambien] 10 mg PO HS 01/12/17 [History] lamoTRIgine [Lamictal] 200 mg PO HS 01/12/17 [History] Amitriptyline [Elavil] 50 mg PO DAILY 03/10/17 [History] FLUoxetine HCl [Fluoxetine HCl] 60 mg PO DAILY 03/10/17 [History] Omeprazole [PriLOSEC] 20 mg PO DAILY 03/10/17 [History] SUMAtriptan succinate [Imitrex] 50 mg PO Q2H PRN 03/10/17 [History] Docusate [Colace] 100 mg PO BID #30 capsule 03/11/17 [Rx] OxyCODONE/APAP 5/325 [Percocet 5/325 MG] 1 tab PO Q4HR PRN 03/21/17 [History] 3 Allergy/AdvReac Type Severity Reaction Status Date / Time metoclopramide [From Reglan] Allergy See Verified 03/19/17 02:40 Comments Penicillins Allergy Anaphylaxis Verified 03/19/17 02:40 Sulfa (Sulfonamide Allergy Swelling Verified 03/19/17 02:40 Antibiotics) of Lip/Tongue/Throat - Meds/Allergy Pre-op Review Medications Reviewed: Yes Allergies Reviewed: Yes Beta Blockers on Current Med List: No Anesthesia Results - Labs 03/24/17 06:23 03/24/17 06:23 - Imaging EKG: report reviewed (SR) Anesthesia Exam O2 Sat O2 Sat by Pulse Oximetry 97 O2 Sat by Pulse Oximetry 98 O2 Sat by Pulse Oximetry 98 O2 Sat by Pulse Oximetry 97 O2 Sat by Pulse Oximetry 95 O2 Sat by Pulse Oximetry 96 Vital Signs Temp Pulse Resp BP Pulse Ox 98.2 F 85 20 132/89 95 03/21/17 13:20 03/21/17 13:20 03/21/17 13:20 03/21/17 13:20 03/21/17 13:20 Vital Signs/O2 Sat, Most Current Temp Pulse Resp BP Pulse Ox 97.9 F 61 14 99/65 97 03/24/17 10:29 03/24/17 10:29 03/24/17 10:29 03/24/17 10:29 03/24/17 10:29 - HEENT Pupil (Motor): Pupils equal, EOMI Mallampati: II Teeth: Normal Oral Opening: Greater than 3 - SUBSTATION INSPECTOR LOC: Oriented SUBSTATION INSPECTOR Motor: Normal RUE, Normal LUE, Normal RLE, Normal LLE, Normal Face SUBSTATION INSPECTOR Sensory: Normal: RUE, LUE, RLE, LLE, Face - Cardiac Rhythm: Regular Murmur: None JVD: No Carotid Bruit: No - Pulmonary Breath Sounds: bilateral Clear Respiratory Effort: Symmetrical Anesthesia Assess/Plan ASA Score: 2 Modified Pop Scale for Level of Consciousness: Cooperative, oriented, and tranquil Anesthetic Plan: MAC Autologous Blood: Yes Monitoring Plan: Standard Monitors Recovery Plan: Other
[2017-03-24] MEDS ORDERED: 0.9 % Sodium Chloride 500 ML IVC SCH (12:45)
[2017-03-24] MEDS: Ondansetron 4 MG/2 ML VIAL IVP PRN ×2 (14:45→21:11)
[2017-03-24] MEDS ORDERED: Lidocaine -MPF 2% 5 ML VIAL INFILT ONE (15:59)
[2017-03-24] MEDS ORDERED: *HR* Propofol 200 MG/20 ML VIAL IVP ONE (15:59)
[2017-03-24] MEDS: *HR* LORazepam 2 MG/ML VIAL IVP PRN (18:19)
[2017-03-24] MEDS: lamoTRIgine 100 MG TABLET PO SCH (21:11)
[2017-03-25] MEDS: *HR* HYDROmorphone (PF) 1 MG/ML SYRINGE IVP PRN ×8 (00:07→20:43)
[2017-03-25] MEDS: Pantoprazole 40 MG VIAL IVP SCH ×2 (04:46→17:30)
[2017-03-25] MEDS: MetroNIDAZOLE 500 MG/100 ML 500 MG/100 ML BAG IVPB SCH ×3 (07:43→23:17)
[2017-03-25] MEDS: Sucralfate 1 GM TABLET PO SCH ×4 (07:45→20:43)
[2017-03-25] MEDS: FLUoxetine 20 MG CAPSULE PO SCH (07:46)
[2017-03-25 09:19] LABS: Basophils % 0.8 %; Eosinophils # 0.2 K/mcL (0.0-0.6); Eosinophils % 5.9 %; Hematocrit 37.1 % (35.3-44.9); Hemoglobin 11.7 g/dL (11.5-15.4); Immature Granulocytes % 0.3 % (0-4); Immature Platelets 3.7 % (1.1-6.1); Lymphocytes # 1.3 K/mcL (0.6-4.6); Lymphocytes % 35.1 %; Mean Corpuscular HGB Conc 31.5 g/dL (31.6-35.5); Mean Corpuscular Hemoglobin 28.4 pg (28.0-33.3); Mean Platelet Volume 10.9 fL (9.4-12.4); Monocytes # 0.4 K/mcL (0.0-1.3); Monocytes % 10.3 %; Neutrophils # 1.8 K/mcL (1.6-8.9); Platelet Count 231 K/mcL (140-400); Red Blood Count 4.12 M/mcL (3.82-4.97); Red Cell Distribution Width 13.5 % (11.5-14.5); Segmented Neutrophils % 47.6 %
[2017-03-25 09:30] LABS: BUN/Creatinine Ratio 6 (6-26); Calcium 8.5 mg/dL (8.6-10.8); Carbon Dioxide 27 mEq/L (19-29); Chloride 107 mEq/L (98-109); Glucose 85 mg/dL (70-99); Magnesium 1.8 mg/dL (1.6-2.6); Osmolality,Calculated 289 (280-300); Phosphorous 3.5 mg/dL (2.3-4.7); Potassium 3.4 mEq/L (3.5-4.5); Sodium 141 mEq/L (136-145); eGFR For African Americans > 60 (> 60); eGFR For Non-African Americans > 60 (> 60)
[2017-03-25 09:31] LABS: Blood Urea Nitrogen 5 mg/dL (7-20)
--- NOTE | 2017-03-25 09:31 | Gastroenterology Progress Note ---
<TonyvalerystefanyBrian Perez - Last Filed: 03/25/17 09:53> Date of Encounter: 03/25/17 Time of Encounter: 09:29 - Assessment and plan (1) Duodenitis Status: Acute Assessment and plan: 51-year-old female with epigastric pain is described as sharp radiating to her back with recurrent evaluations without resolution over last several weeks. Status post cholecystectomy on 03/10/2017 without resolution of symptoms. She continues to have abdominal pain which fluctuates and intensity and associated with nausea and vomiting described as white and with bubbles. Significant past medical history: Cholecystectomy 2 weeks ago, gastric bypass greater than 10 years ago, history of peptic ulcer disease, GERD, hiatal hernia , small bowel obstruction 1.5 years ago, recurrent abdominal MRSA infections. CT of the abdomen obtained 03/21/2017 demonstrates duodenitis with interval development of a 1.2 x 0.9 cm focal fluid collection immediately adjacent to the medial descending duodenum likely focal ulceration or less likely contained perforation. Significant laboratory findings: Normal AST and ALT, elevated alkaline phosphatase which may be secondary to duodenitis, normal lipase, normal WBC count - Patient denies any recent EGD or evaluation of the esophagus, gastric cavity or small bowel. - Patient currently nothing by mouth except for clear liquids and has been for over 24 hours. 03/25: Patient continues to have right upper quadrant abdominal discomfort and flares of pain. No significant change since admission. Plan: - Continue PPI and Carafate - MRCP today (2) GERD (gastroesophageal reflux disease) Status: Chronic Assessment and plan: Known history of GERD, patient to continue taking Carafate and Protonix 40 mg IV daily EGD findings from 03/24/2017 demonstrating esophageal mucosal changes suspicious for short segment Stacy's esophagous present the lower third of esophagus from 29-31 cm. Biopsies obtained during EGD. Qualifiers: Esophagitis presence: with esophagitis Qualified Code(s): K21.0 - Gastro- esophageal reflux disease with esophagitis (3) History of bariatric surgery Status: Chronic Assessment and plan: Significant past medical history as abdominal anatomy will be altered. - Time Spent With Patient Total time spent is greater than 50% in coordination of care (as documented) at patient's floor/unit and/or counseling patient: - Subjective Interval history: Mrs. Arciniega has been seen and evaluated patient bedside this morning. She continues to have abdominal discomfort and occasional flares in her abdominal pain radiating to her back. She tolerated the EGD yesterday without any concerns. She has been up moving around her patient room and on the hallway. She still is concerned what may be causing her pain. After a thorough discussion regarding findings of the EGD and plan for MRCP she is agreeable. - Constitutional Vitals: Temp Pulse Resp BP Pulse Ox 97.9 F 63 14 109/76 99 03/25/17 06:48 03/25/17 06:48 03/25/17 06:48 03/25/17 06:48 03/25/17 06:48 General appearance: Present: cooperative, A&O X 3, pleasant, no acute distress Exam: General: Patient alert, awake, oriented 3, interactive, in no acute distress HEENT: Normocephalic, atraumatic, neck supple trachea midline no palpable lymphadenopathy, no thyromegaly. Chest: Symmetric bilateral correlating with respiratory effort, effort nonlabored. Cardiac: Regular rate and rhythm, positive S1 and S2. no bruits appreciated bilateral carotids, Radial pulses 2+ bilateral, posterior tibial and dorsal pedal pulses 2+ bilateral. Respiratory: Clear to auscultation all lung caceres Abdomen: Soft, mild tenderness to palpation the right upper quadrant, positive bowel sounds, no palpable masses appreciated on examination Extremities: Symmetric bilateral, bilateral lower extremities without erythema or edema Neurologic: No focal deficits appreciated on examination. Face symmetric Results - Labs CBC & Chem 7: 03/25/17 08:25 03/25/17 08:25 Labs: Last Result Calcium 8.4 mg/dL (8.6-10.8) L 03/24/17 06:23 Entire Visit Hgb 11.7 g/dL (11.5-15.4) 03/25/17 08:25 Hct 37.1 % (35.3-44.9) 03/25/17 08:25 Total Bilirubin < 0.2 mg/dL (0.2-1.2) L 03/21/17 13:37 AST 20 Units/L (5-34) 03/21/17 13:37 ALT 16 Units/L (0-55) 03/21/17 13:37 Amylase 65 Units/L (25-125) 03/21/17 13:37 Lipase 19 Units/L (8-78) 03/21/17 13:37 Consult Discharge Plan - Plan Additional Instructions: Please follow up with DR. Ivy (gastroenterology) and your primary care physician within one week after your discharge from the hospital. Your home dose of Omeprazole has been increased to 40mg twice a day. Carafate 1gm four times a day with meals has been added to your home meds Please resume all other medications as prescribed by your primary care physician. Please hold pain medications if your systolic blood pressure is less than 100. Referrals: Delphine Silva MD [Primary Care Provider] - (Office will call with appt. Thank you) Lea Ivy MD [Partnered Physician] - Prescriptions: Omeprazole [PriLOSEC] 40 mg PO Q12H #60 cap OxyCODONE/APAP 5/325 [Percocet 5/325 MG] 1 tab PO Q6H PRN #20 tablet PRN Reason: moderate to severe pain Sucralfate [Carafate] 1 gm PO QIDAC #90 tablet <Lea Ivy - Last Filed: 03/30/17 16:12> Date of Encounter: 03/25/17 Time of Encounter: 14:00 - Time Spent With Patient Total time spent is greater than 50% in coordination of care (as documented) at patient's floor/unit and/or counseling patient: - Constitutional Vitals: Temp Pulse Resp BP Pulse Ox 98 F 70 16 97/62 100 03/26/17 06:43 03/26/17 06:43 03/26/17 06:43 03/26/17 13:55 03/26/17 06:43 Results - Labs CBC & Chem 7: 03/26/17 05:47 03/26/17 05:47 Labs: Last Result Calcium 8.4 mg/dL (8.6-10.8) L 03/26/17 05:47 Entire Visit Hgb 11.3 g/dL (11.5-15.4) L 03/26/17 05:47 Hct 35.6 % (35.3-44.9) 03/26/17 05:47 Total Bilirubin < 0.2 mg/dL (0.2-1.2) L 03/21/17 13:37 AST 20 Units/L (5-34) 03/21/17 13:37 ALT 16 Units/L (0-55) 03/21/17 13:37 Amylase 65 Units/L (25-125) 03/21/17 13:37 Lipase 19 Units/L (8-78) 03/21/17 13:37 - Attending Attestation I examined this patient and my medical decision-making was reviewed with the Resident Physician. I agree with the documented findings, disposition and treatment plan as described except to the extent set forth below.
--- NOTE | 2017-03-25 11:26 | Internal Med Progress Note ---
Date of Encounter: 03/25/17 Time of Encounter: 11:24 - Assessment and plan (1) Abdominal pain Current Visit: Yes Status: Acute Assessment and plan: secondary to Duodenitis continue PPI and Carafate pain control surgery consultation appreciated, no further surgical intervention recommended GI evaluation appreciated, s/p EGD, findings concerning for Stacy's esophagus Abd pain persists, scheduled for MRCP later today Qualifiers: Abdominal location: right upper quadrant Qualified Code(s): R10.11 - Right upper quadrant pain (2) Duodenitis Current Visit: Yes Status: Acute Assessment and plan: continue empiric abx, PPI, carafate pain control GI evaluation appreicated (3) DVT prophylaxis Current Visit: Yes Status: Acute Assessment and plan: SCDs (4) GERD (gastroesophageal reflux disease) Current Visit: No Status: Chronic Assessment and plan: continue PPI Qualifiers: Esophagitis presence: with esophagitis Qualified Code(s): K21.0 - Gastro- esophageal reflux disease with esophagitis (5) S/P cholecystectomy Current Visit: Yes Status: Chronic (6) Hypokalemia Current Visit: Yes Status: Acute Assessment and plan: K supplemented continue to monitor electrolytes and replace as needed - Subjective Interval history: Patient seen and examined with family present at bedside.Reports of pain being better controlled. 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 pt states the pain has remained the same, but hasn't worsened. Scheduled for MRCP later today - Constitutional Vitals: Temp Pulse Resp BP Pulse Ox 97.4 F L 66 14 100/68 99 03/25/17 10:44 03/25/17 10:44 03/25/17 10:44 03/25/17 10:44 03/25/17 10:44 General appearance: Present: A&O X 3, no acute distress, obese, answers questions appropriately - Head Head exam: Present: atraumatic, normocephalic - Eye Eye exam: Present: conjuntiva pink, sclera anicteric - Respiratory Respiratory exam: Present: CTAB. Absent: accessory muscle use, rales, rhonchi, wheezes - Cardiovascular Cardiovascular exam: Present: RRR, +S1, +S2. Absent: diastolic murmur, gallop, rubs, systolic murmur - GI/Abdominal GI/Abdominal exam: Present: normal bowel sounds, soft, no peritoneal signs. Absent: distended, tenderness - Extremities Exam Extremities exam: Present: warm, radial pulses palpable and symmetrical. Absent : calf tenderness, pedal edema - Neurological Exam Neurological exam: Present: alert, oriented X3 Internal Medicine: Result - Labs CBC & Chem 7: 03/25/17 08:25 03/25/17 08:25 Labs: Short CBC 03/25/17 Range/Units 08:25 WBC 3.7 L (4.3-11.1) K/mcL Hgb 11.7 (11.5-15.4) g/dL Hct 37.1 (35.3-44.9) % Plt Count 231 (140-400) K/mcL Neutrophils # 1.8 (1.6-8.9) K/mcL BMP 03/25/17 08:25 Sodium 141 Potassium 3.4 L Chloride 107 Carbon Dioxide 27 BUN 5 L Creatinine 0.77 Glucose 85 Calcium 8.5 L Consult Discharge Plan - Plan Referrals: Delphine Silva MD [Primary Care Provider] - (Office will call with appt. Thank you)
[2017-03-25] MEDS: Ondansetron 4 MG/2 ML VIAL IVP PRN ×2 (13:08→20:43)
[2017-03-25] MEDS: lamoTRIgine 100 MG TABLET PO SCH (20:43)
[2017-03-25] MEDS: *HR* Promethazine 25 MG/ML VIAL IVP PRN (23:30)
[2017-03-26] MEDS: Ondansetron 4 MG/2 ML VIAL IVP PRN (05:20)
[2017-03-26] MEDS: Pantoprazole 40 MG VIAL IVP SCH (05:20)
[2017-03-26] MEDS: *HR* HYDROmorphone (PF) 1 MG/ML SYRINGE IVP PRN ×3 (05:20→12:29)
[2017-03-26 06:12] LABS: Basophils % 0.6 %; Eosinophils # 0.3 K/mcL (0.0-0.6); Eosinophils % 8.4 %; Hematocrit 35.6 % (35.3-44.9); Hemoglobin 11.3 g/dL (11.5-15.4); Immature Granulocytes % 0.3 % (0-4); Lymphocytes # 1.1 K/mcL (0.6-4.6); Lymphocytes % 31.1 %; Mean Corpuscular HGB Conc 31.7 g/dL (31.6-35.5); Mean Corpuscular Hemoglobin 28.5 pg (28.0-33.3); Mean Corpuscular Volume 89.7 fL (83.0-100.0); Mean Platelet Volume 10.7 fL (9.4-12.4); Monocytes # 0.4 K/mcL (0.0-1.3); Monocytes % 10.6 %; Neutrophils # 1.8 K/mcL (1.6-8.9); Platelet Count 224 K/mcL (140-400); Red Blood Count 3.97 M/mcL (3.82-4.97); Red Cell Distribution Width 13.5 % (11.5-14.5)
[2017-03-26 06:25] LABS: BUN/Creatinine Ratio 5 (6-26); Calcium 8.4 mg/dL (8.6-10.8); Carbon Dioxide 27 mEq/L (19-29); Chloride 107 mEq/L (98-109); Glucose 104 mg/dL (70-99); Magnesium 1.8 mg/dL (1.6-2.6); Osmolality,Calculated 289 (280-300); Phosphorous 3.3 mg/dL (2.3-4.7); Potassium 3.5 mEq/L (3.5-4.5); Sodium 141 mEq/L (136-145); eGFR For African Americans > 60 (> 60); eGFR For Non-African Americans > 60 (> 60)
[2017-03-26 06:26] LABS: Blood Urea Nitrogen 4 mg/dL (7-20)
[2017-03-26] MEDS: FLUoxetine 20 MG CAPSULE PO SCH (08:36)
[2017-03-26] MEDS: *HR* Promethazine 25 MG/ML VIAL IVP PRN (08:36)
[2017-03-26] MEDS: Sucralfate 1 GM TABLET PO SCH ×2 (08:37→11:58)
[2017-03-26] MEDS: MetroNIDAZOLE 500 MG/100 ML 500 MG/100 ML BAG IVPB SCH (08:37)
--- NOTE | 2017-03-26 13:47 | Discharge Summary ---
Date of Encounter: 03/26/17 Time of Encounter: 13:15 - Discharge Diagnosis (1) Abdominal pain Priority: Primary Status: Acute Qualifiers: Abdominal location: right upper quadrant Qualified Code(s): R10.11 - Right upper quadrant pain (2) Duodenitis Priority: Secondary Status: Acute (3) DVT prophylaxis Priority: Secondary Status: Acute (4) GERD (gastroesophageal reflux disease) Priority: Secondary Status: Chronic Qualifiers: Esophagitis presence: with esophagitis Qualified Code(s): K21.0 - Gastro- esophageal reflux disease with esophagitis (5) S/P cholecystectomy Priority: Secondary Status: Chronic (6) Hypokalemia Priority: Secondary Status: Resolved - Discharge Medications Prescriptions: Omeprazole [PriLOSEC] 40 mg PO Q12H #60 cap OxyCODONE/APAP 5/325 [Percocet 5/325 MG] 1 tab PO Q6H PRN #20 tablet PRN Reason: moderate to severe pain Sucralfate [Carafate] 1 gm PO QIDAC #90 tablet Home Medications: Acetaminophen [Tylenol] 500 mg PO Q6H PRN 01/12/17 [History] Acetaminophen/Butalbital/Caffe [Fioricet] 1 tab PO DAILY PRN 01/12/17 [History] Ranitidine HCl [Zantac] 150 mg PO BID 01/12/17 [History] Tramadol HCl [Ultram] 50 mg PO TID PRN 01/12/17 [History] Zolpidem [Ambien] 10 mg PO HS 01/12/17 [History] lamoTRIgine [Lamictal] 200 mg PO HS 01/12/17 [History] Amitriptyline [Elavil] 50 mg PO DAILY 03/10/17 [History] FLUoxetine HCl [Fluoxetine HCl] 60 mg PO DAILY 03/10/17 [History] SUMAtriptan succinate [Imitrex] 50 mg PO Q2H PRN 03/10/17 [History] Docusate [Colace] 100 mg PO BID #30 capsule 03/11/17 [Rx] Omeprazole [PriLOSEC] 40 mg PO Q12H #60 cap 03/26/17 [Rx] OxyCODONE/APAP 5/325 [Percocet 5/325 MG] 1 tab PO Q6H PRN #20 tablet 03/26/17 [ Rx] Sucralfate [Carafate] 1 gm PO QIDA #90 tablet 03/26/17 [Rx] Allergies/Adverse Reactions: 3 Allergy/AdvReac Type Severity Reaction Status Date / Time metoclopramide [From Reglan] Allergy See Verified 03/19/17 02:40 Comments Penicillins Allergy Anaphylaxis Verified 03/19/17 02:40 Sulfa (Sulfonamide Allergy Swelling Verified 03/19/17 02:40 Antibiotics) of Lip/Tongue/Throat Procedures/tests Complete & Pending: Procedures Performed prior 72 hours Category Date Time Status MR MRCP [MR abdomen wo con] [MR] Stat MRI 03/25/17 09:59 Completed Date of admission: 03/21/17 23:35 Primary care physician: Delphine Silva MD Consults: 03/22/17 15:25 Consult to Gastroenterology [CONS] Routine Consulting Provider: Gastroenterology Reta Reason for Consult: abd pain/duodenitis Call Completed: Yes Discharging clinician: Val Restrepo Anticipated date of discharge: 03/26/17 - Patient Status Disposition: Home, Self-Care Condition: Good Functional capacity at discharge: independent ambulation Overall status at discharge: patient is back to baseline - Discharge Instructions Follow Up With: Delphine Silva MD [Primary Care Provider] - (Office will call with appt. Thank you) Lea Ivy MD [Partnered Physician] - Additional Instructions: Please follow up with DR. vIy (gastroenterology) and your primary care physician within one week after your discharge from the hospital. Your home dose of Omeprazole has been increased to 40mg twice a day. Carafate 1gm four times a day with meals has been added to your home meds Please resume all other medications as prescribed by your primary care physician. Please hold pain medications if your systolic blood pressure is less than 100. - Diet and Activity Activity: resume usual activities as tolerated Diet: advance to your usual diet Hospital course: Ms. Arciniega is a 51 year old female with PMH of fibromyalgia, GERD, s/p cholecystectomy who was admitted for severe abdominal pain. Pt was seen by GI. There was concern for duodenitis for which she was started on empiric abx. She underwent EGD which showed Stacy's esophagus. Had a MRCP which showed no biliary ductal dilatation or evidence for choledocholithiasis. Pt continues to have intermittent episodes of pain. She has been evaluated by GI and surgery. NO acute intervention is recommended by either of the specialities. Pt's home dose of omeprazole has been increased and carafate has been added. Pt is hemodyamically stable and tolerating PO intake. She will be discharged to home with follow up with GI and PCP. - Time Spent with Patient Total time spent providing and/or coordinating discharge services: Greater than 30 minutes - Constitutional Vitals: Temp Pulse Resp BP Pulse Ox 98 F 70 16 94/61 100 03/26/17 06:43 03/26/17 06:43 03/26/17 06:43 03/26/17 06:43 03/26/17 06:43 General appearance: Present: A&O X 3, no acute distress, obese, answers questions appropriately - Head Head exam: Present: atraumatic, normocephalic - Eye Eye exam: Present: conjuntiva pink, sclera anicteric - Respiratory Respiratory exam: Present: CTAB. Absent: accessory muscle use, rales, rhonchi, wheezes - Cardiovascular Cardiovascular exam: Present: RRR, +S1, +S2. Absent: diastolic murmur, gallop, rubs, systolic murmur - GI/Abdominal GI/Abdominal exam: Present: normal bowel sounds, soft, no peritoneal signs. Absent: distended, tenderness - Extremities Exam Extremities exam: Present: warm, radial pulses palpable and symmetrical. Absent : calf tenderness, cyanotic, pedal edema - Neurological Exam Neurological exam: Present: alert, oriented X3 - Psychiatric Psychiatric exam: Present: normal affect, normal mood
[2017-03-26 13:56] VITALS: BP 97/62
== END 2017-03-26 16:00 | disposition home or self-care (01) | DRG 392 ==
LOC: 3ANU 12:54 → EMEROO 12:54 → 3ANU 16:45 → SUATTDRO 23:35
PROVIDERS: ADMIT Internal Medicine; ATTEND Internal Medicine
PROC: ENDOEBX (2017-03-24 13:00)